=== PATIENT | female | born 1990 | race Caucasian/White ===

== ENCOUNTER 2017-06-07 17:49 | Inpatient (IN) ==
[2017-06-07] MEDS ORDERED: metroNIDAZOLE INJ 500 MG in PREMIX 1 EACH IV STA (19:52)
[2017-06-07] MEDS ORDERED: CEFUROXIME 250 MG TABLET PO STA (19:53)
--- NOTE | 2017-06-07 19:56 | Emergency Department Note ---
Arrival - Arrival Chief Complaint: Abdominal / Flank Pain Stated Complaint: lower lt stomach stabbing pain,nausea,wont eat ED Nursing Triage Note: c/o left lower quadrant abdominal pain onset approx one week ago. Describes as squeezing pain. Pain worse upon ambulation. +nausea. + decreased appetite. +diarrhea-chronic. Mode of Arrival: Ambulatory Time Seen by Provider: 06/07/17 19:37 - History of Present Illness HPI Narrative: This is a 26-year-old white female with chronic abdominal pain who has had a hysterectomy cholecystectomy and appendectomy there is been admitted to the emergency department several times this year with left lower quadrant abdominal pain thought to be due to diverticulitis is been treated with amoxicillin and Flagyl presents with recurrence of left lower quadrant pain which the patient says that she has somehow been able to obtain amoxicillin and Flagyl for and which is not working. During her last admission 3 months ago she had a sigmoidoscopy with biopsy of the sigmoid colon which did not show evidence of inflammatory bowel disease a diagnosis which the patient claims she has been diagnosed with in the past but for which there is no documentation. Patient is unwilling to accept oral antibiotics but is requesting IV antibiotics for her chronic presumed diverticulitis with left lower quadrant abdominal pain peer Date of Last Menstrual Period: hyst Allergies/Adverse Reactions: Allergies Allergy/AdvReac Type Severity Reaction Status Date / Time levofloxacin [From Levaquin] Allergy HIVES Verified 06/07/17 18:17 Home Medications: Home Medications Medication Instructions Recorded Confirmed Type Amoxicillin/Clav Tab [Augmentin 500 mg PO BID 04/27/17 04/27/17 History Tab] Estradiol [Estradiol 0.1 mg/24 hr 1 patch TOP Q3D 04/27/17 04/27/17 History (2x week) Patch] metroNIDAZOLE [Metronidazole] 500 mg PO BID 04/27/17 04/27/17 History Dicyclomine Cap/Tab [Bentyl 20 mg PO QID PRN #60 tablet 04/28/17 Rx Cap/Tab] Hydrocodone/Acetaminophen [[place] 1 each PO RT Q8H PRN #12 tablet 04/28/17 Rx 10-325 Tablet] Polyethylene Glycol Powder 17 gm PO DAILY #14 pack 04/28/17 Rx [Miralax] Cefuroxime Tab [Ceftin] 500 mg PO Q12HR #14 tablet 06/07/17 Rx metroNIDAZOLE TAB [Flagyl Cap/Tab] 500 mg PO TID #21 tablet 06/07/17 Rx oxyCODONE/ACETAMINOPHEN 5-325 1 tablet PO Q6H #10 tablet 06/07/17 Rx [Percocet 5-325] Review of System - Review of System Constitutional: Absent: fever, night sweats Eyes: Absent: redness Head/Ears/Nose/Throat: Absent: epistaxis, nasal drainage Respiratory: Absent: respiratory distress Cardiovascular: Absent: dyspnea on exertion, orthopnea Gastrointestinal: Present: abdominal pain. 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) No history of: Seizures Rheumatology: History of;: Fibromyalgia, Rheumatoid Arthritis Gastrointestinal: History of: Diverticulitis/ Diverticulosis, GERD, Ulcerative Colitis Musculoskeletal: History of: Musculoskeletal Problems (ARTHRITIS, degenerative spinal disease) Other: History of: Miscellaneous Medical Problems (chronic Lyme disease followed by infectious disease with high-dose antibiot) - Surgical History Cardiac Surgeries: Sugical HX of: Vascular Access Devices (ports and PICC lines in treatment of Lymes disease) Thoracic Surgeries: Patient denies;: Lobectomy Neurologic Surgeries: Patient denies: Neurologic Surgery HEENT Surgeries: Surgical HX of: Tonsilectomy & Adenoidectomy Abdominal Surgeries: Surgical HX of: Abdominal Surgery (cholecystectomy), Appendectomy, Cholecystectomy, Colonoscopy ([place] biopsy mild inflammatory changes), EGD Reproductive Surgeries: Surgical HX of;: Gynecologic Surgery, Hysterectomy Orthopedic Surgeries: Surgical HX of;: Implanted Devices (mediport left chest) - Family History Family History: Reports;: Family Cancer (dad prostate, grandmother ovarian), Family Diabetes (dad), Family Heart Disease (dad), Family Stroke (dad) Denies;: Family Anesthesia Reaction, Family Hypertension, Family Psychiatric Problems - Social History Smoking Status: Never smoker Frequency of Alcohol Use: None Type of Drug Use: None Exam Vital Signs: Vital Signs Temperature 98.2 F 06/07/17 19:04 Pulse Rate 65 06/07/17 19:04 Respiratory Rate 18 06/07/17 19:04 Blood Pressure 121/77 06/07/17 19:04 O2 Sat by Pulse Oximetry 100 06/07/17 18:09 - General General appearance: alert - Eye Eye exam: Present: PERRL, EOMI - ENT ENT exam: Present: normal exam, normal oropharynx - Neck Neck exam: Present: normal inspection - Chest Chest inspection: Present: normal inspection - Respiratory Respiratory exam: Present: normal lung sounds bilaterally - Cardiovascular Cardiovascular exam: Present: regular rate, normal rhythm - Abdominal Exam Abdominal exam: Present: soft, normal bowel sounds - Extremities Exam Extremities exam: Present: normal inspection, full ROM - Back Exam Back exam: Present: normal inspection, full ROM - Neurological Exam Neurological exam: Present: alert, oriented X3, CN II-XII intact - Psychiatric Psychiatric exam: Present: normal affect, normal mood - Skin Skin exam: Present: warm, dry Course Course Narrative: The case was discussed with the hospitalist who agreed to admit the patient for further evaluation and treatment of her unexplained abdominal pain. Results - Labs CBC & BMP: 06/07/17 20:31 06/07/17 20:31 Disposition Clinical Impression: Abdominal pain, chronic, left lower quadrant Disposition: Still a Patient Instructions: Cefuroxime (By mouth), Metronidazole (By mouth) Additional Instructions: The case was discussed with the hospitalist who is aware of the patient's unexplained altered mental status and has agreed to admit the patient to the hospital for further evaluation and treatment. Prescriptions: Cefuroxime Tab [Ceftin] 500 mg PO Q12HR #14 tablet metroNIDAZOLE TAB [Flagyl Cap/Tab] 500 mg PO TID #21 tablet oxyCODONE/ACETAMINOPHEN 5-325 [Percocet 5-325] 1 tablet PO Q6H #10 tablet New Prescriptions: Rx's Medication Instructions Recorded Cefuroxime Tab [Ceftin] 500 mg PO Q12HR #14 tablet 06/07/17 metroNIDAZOLE TAB [Flagyl Cap/Tab] 500 mg PO TID #21 tablet 06/07/17 oxyCODONE/ACETAMINOPHEN 5-325 1 tablet PO Q6H #10 tablet 06/07/17 [Percocet 5-325]
[2017-06-07] MEDS ORDERED: CEFUROXIME 250 MG TABLET ONE ×2 (20:22→20:43)
[2017-06-07] MEDS ORDERED: metroNIDAZOLE 500 MG/100 ML PREMIX IV ONE (20:22)
[2017-06-07] MEDS ORDERED: ONDANSETRON ODT 4 MG TABLET PO STA (20:48)
[2017-06-07] MEDS ORDERED: ONDANSETRON ODT 4 MG TABLET PO ONE (20:49)
[2017-06-07 20:51] LABS: Basophils # 0.1 10*3/uL (0.0-0.2); Basophils % 0.6 % (0.0-0.8); Eosinophils # 0.1 10*3/uL (0.0-0.87); Eosinophils % 1.8 % (0.00-10.9); Hemoglobin 12.7 GM/DL (12.0-16.0); Immature Granulocytes % 0.3 %; Immature Granulocytes Absolute 0.02 #; Lymphocytes # 3.3 10*3/uL (1.4-4.0); Lymphocytes % 42.9 % (21.3-54.2); Mean Corpuscular HGB Conc 34.3 GM/DL (32-36); Mean Corpuscular Hemoglobin 28 PG (27-34); Mean Platelet Volume 9.3 FL (9.6-12.0); Monocytes # 0.5 10*3/uL (0.11-0.8); Monocytes % 6.6 % (1.7-12.7); Neutrophils # 3.7 10*3/uL (1.4-7.4); Neutrophils % 47.8 % (38.7-73.9); Platelet Count 256 T/CUMM (130-400); Red Blood Count 4.51 MC/CUMM (3.8-5.5); Red Cell Distribution Width 13.7 % (9.3-17.3); White Blood Count 7.7 T/CUMM (4-12)
[2017-06-07] MEDS ORDERED: MORPHINE 2 MG/1 ML SYRINGE IV STA (20:57)
[2017-06-07] MEDS ORDERED: MORPHINE 2 MG/1 ML SYRINGE ONE (21:02)
[2017-06-07] MEDS ORDERED: HYDROmorphone 2 MG/1 ML VIAL IV STA (22:22)
[2017-06-07] MEDS ORDERED: ONDANSETRON 4 MG/2 ML VIAL IV STA (22:23)
[2017-06-07] MEDS ORDERED: ONDANSETRON 4 MG/2 ML VIAL ONE (22:46)
[2017-06-07] MEDS ORDERED: HYDROmorphone 2 MG/1 ML VIAL ONE (22:46)
[2017-06-07 22:50] LABS: Albumin 3.7 G/DL (3.4-5.0); Bilirubin,Total 0.4 MG/DL (0.2-1.0); Calcium 8.6 MG/DL (8.5-10.1); Osmolality,Calculated 278.3 MOS/KG (273-304); Potassium 3.6 MMOL/L (3.5-5.1); Total Protein 7.2 G/DL (6.4-8.3)
[2017-06-07] MEDS ORDERED: diphenhydrAMINE 50 MG/1 ML VIAL IV STA (23:12)
--- NOTE | 2017-06-08 01:22 | Hospitalist History & Physical ---
Assessment and Plan (1) Constipation Status: Acute Assessment and plan: This is an acute on chronic process. Today the patient presents with severe constipation throughout the colon is noted on her CT scan. She is admitted for fleets enemas and bowel regimen with GI consultation. CBC and chemistries were normal. I am not starting her on antibiotics as she does not have any evidence of acute diverticulitis at this time. Current Visit: Yes Qualifiers: Constipation type: chronic idiopathic constipation Qualified Code(s): K59.04 - Chronic idiopathic constipation (2) Nausea and vomiting Status: Acute Current Visit: Yes Qualifiers: Vomiting type: vomiting of fecal matter Qualified Code(s): R11.13 - Vomiting of fecal matter (3) Abdominal pain Status: Chronic Current Visit: Yes Qualifiers: Abdominal location: left lower quadrant Qualified Code(s): R10.32 - Left lower quadrant pain History of Present Illness Chief complaint: abdominal pain History of present illness: Ms. Esquivel is a 26 year old female with complaints of severe abdominal pain. She has chronic constipation. She has been worked up by Dr. Rowe and had multiple scopes in the past with Biaopsy. She does not have a hx of Inflammatory bowel disease. She has had diverticulitis in the past. Today, she complains of LLQ abdominal pain and nausea with vomiting. She had a CT abd/ pelvis done that shows extensive fecal material throughout the colon. She reports some encopresis and significant pain throughout. She also reports vomiting feculent material today. She reports feeling bloated and having decreased appetite. She is supposed to be on MiraLAX daily for prevention of chronic constipation. Home medications were reviewed and reconciled. She is a full code. Her mother was at the bedside. The patient was set up for discharge home from the emergency department however due to her significant pain complaints I was called to admit the patient for further evaluation and gastroenterology consultation. Home Medications Medication Instructions Recorded Confirmed Type Amoxicillin/Clav Tab [Augmentin 500 mg PO BID 04/27/17 04/27/17 History Tab] Estradiol [Estradiol 0.1 mg/24 hr 1 patch TOP Q3D 04/27/17 04/27/17 History (2x week) Patch] metroNIDAZOLE [Metronidazole] 500 mg PO BID 04/27/17 04/27/17 History Dicyclomine Cap/Tab [Bentyl 20 mg PO QID PRN #60 tablet 04/28/17 Rx Cap/Tab] Hydrocodone/Acetaminophen [[place] 1 each PO RT Q8H PRN #12 tablet 04/28/17 Rx 10-325 Tablet] Polyethylene Glycol Powder 17 gm PO DAILY #14 pack 04/28/17 Rx [Miralax] Cefuroxime Tab [Ceftin] 500 mg PO Q12HR #14 tablet 06/07/17 Rx metroNIDAZOLE TAB [Flagyl Cap/Tab] 500 mg PO TID #21 tablet 06/07/17 Rx oxyCODONE/ACETAMINOPHEN 5-325 1 tablet PO Q6H #10 tablet 06/07/17 Rx [Percocet 5-325] Allergies Allergy/AdvReac Type Severity Reaction Status Date / Time levofloxacin [From Levaquin] Allergy HIVES Verified 06/07/17 18:17 Medical,Surgical,& Family Hx - Medical History Neurology: History of: Vertigo, 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) No history of: Seizures Rheumatology: History of;: Fibromyalgia, Rheumatoid Arthritis Gastrointestinal: History of: Diverticulitis/ Diverticulosis, GERD Musculoskeletal: History of: Musculoskeletal Problems (ARTHRITIS, degenerative spinal disease) Other: History of: Miscellaneous Medical Problems (chronic Lyme disease followed by infectious disease with high-dose antibiot) - Surgical History Cardiac Surgeries: Sugical HX of: Vascular Access Devices (ports and PICC lines in treatment of Lymes disease) Thoracic Surgeries: Patient denies;: Lobectomy Neurologic Surgeries: Patient denies: Neurologic Surgery HEENT Surgeries: Surgical HX of: Tonsilectomy & Adenoidectomy Abdominal Surgeries: Surgical HX of: Abdominal Surgery (cholecystectomy), Appendectomy, Cholecystectomy, Colonoscopy ([place] biopsy mild inflammatory changes), EGD Reproductive Surgeries: Surgical HX of;: Gynecologic Surgery, Hysterectomy Orthopedic Surgeries: Surgical HX of;: Implanted Devices (mediport left chest) - Family History Family History: Reports;: Family Cancer (dad prostate, grandmother ovarian), Family Diabetes (dad), Family Heart Disease (dad), Family Stroke (dad) Denies;: Family Anesthesia Reaction, Family Hypertension, Family Psychiatric Problems - Social History Smoking Status: Never smoker Have you smoked in the last 12 months: No Frequency of Alcohol Use: None Type of Drug Use: None Marital Status: Single Lives With:: Alone Functional capacity: independent ambulation 12 point system: reviewed and no additional remarkable complaints except as stated - Constitutional Constitutional: Present: anorexia - Gastrointestinal Gastrointestinal: Present: abdominal pain, bloating, constipation, dyspepsia, nausea, vomiting Exam - Constitutional Vitals: Period Temp Pulse Resp BP Sys/Banks Pulse Ox Last 24 Hr 98.2 F-98.2 F 65-74 16-18 121-122/77-83 100 Exam: Constitutional System: Mild distress. No tremulousness. Head: Normocephalic, atraumatic. Ears, Nose and Throat System: No pain or tenderness. No epistaxis or discharge Eyes System: Pupils equal, round, and reactive. Extraocular muscles intact. Neck: Supple, without adenopathy, No jugular venous distention. No thyromegaly, neck mass, or prior surgery apparent. Respiratory System: Chest clear to auscultation. Cardiovascular System: Heart with regular rate and rhythm. No murmur. GI System: Abdomen firm with mild tenderness to palpation throughout. Normo active bowel sounds present. Musculoskeletal System: limbs with no pedal edema. Full distal pulses. Normal capillary refill. Neurological System: No discernable sensory deficit. No aphasia Psychiatric System: Conversation is rational Results - Labs CBC & BMP: 06/07/17 20:31 06/07/17 20:31 Lab Results: I have reviewed the past 24 hour labs - Diagnostic Findings Procedure: CT Abdomen and Pelvis: image reviewed by me
[2017-06-08] MEDS ORDERED: SODIUM PHOSPHATE ENEMA 133 ML BOTTLE RECTAL ONE (02:00)
[2017-06-08] MEDS: PROMETHAZINE 25 MG/1 ML VIAL IM PRN ×2 (03:25→19:47)
[2017-06-08] MEDS: SODIUM CHLORIDE 0.9% 1,000 ML IV SCH ×3 (03:31→19:38)
[2017-06-08] MEDS: DICYCLOMINE 20 MG TABLET PO PRN ×2 (03:47→09:10)
[2017-06-08] MEDS: DOCUSATE SODIUM 100 MG CAPSULE PO SCH ×3 (03:47→20:24)
[2017-06-08] MEDS: LACTULOSE 20 GM/30 ML UDCUP PO SCH ×6 (03:49→23:28)
[2017-06-08] MEDS: MORPHINE 2 MG/1 ML SYRINGE IV PRN ×4 (03:57→23:04)
[2017-06-08] MEDS ORDERED: SODIUM PHOSPHATE ENEMA 133 ML BOTTLE RECTAL PRN (08:00)
--- NOTE | 2017-06-08 08:10 | CT Report ---
CT abdomen pelvis Indication: Abdominal and pelvic pain Comparison: 27 April 2017 Technique: Axial CT imaging of the abdomen and pelvis is performed with intravenous and oral contrast. Contrast dose is 100 cc of Omnipaque 350. Findings: Cardiac and lung bases are within normal limits CT abdomen: The liver spleen pancreas and adrenal glands are normal in size and enhancement. No evidence of focal lesion is demonstrated in these solid organs. Gallbladder is been removed. Nonenhancing cyst is seen in the right kidney similar to previous exam. Otherwise the kidneys are normal in size and enhancement. No evidence of hydronephrosis or nephrolithiasis is seen. The bowel caliber is normal and no wall thickening or adjacent inflammatory change is seen. No evidence of free fluid or free air is present. CT pelvis: The pelvic bowel appears within normal limits. Bladder shows no evidence of abnormality. The pelvic organs show no evidence of abnormality Impression: No evidence of abnormality demonstrated This CT exam was performed using one or more the following dose reduction techniques: Automated exposure control, adjustment of the MA and/or KV according to patient size, or use of iterative reconstruction technique. PROCEDURE INTERPRETED AT [facility] DEPARTMENT OF RADIOLOGY Final Report Signed by: Dr. Kulwant García
--- NOTE | 2017-06-08 09:01 | Gastrointestinal Consult Note ---
<Cari Beckman - Last Filed: 06/08/17 08:54> Assessment and Plan (1) Abdominal pain Status: Chronic Assessment and plan: 06/08-5 day history of abdominal pain, left lower quadrant, without fever or chills. Episodes of nausea vomiting. History of diverticulitis without reported IBD. CT of abdomen noted as below. Prior endoscopy was noted as below. IV Flagyl initiated. No leukocytosis and afebrile. Further plan an addendum to followed by Dr. Rowe Current Visit: Yes Qualifiers: Abdominal location: left lower quadrant Qualified Code(s): R10.32 - Left lower quadrant pain History of Present Illness Chief complaint: Abd pain History of present illness: Ms. Esquivel is a 26 year old female who was admitted to the hospital with onset of abdominal pain. Pt has a prior history of abdominal pain with reoccurring episodes and flares. She states that she has had pain in her LLQ for years that requires antibiotic therapy off and on for this. Pt states that this flare began on Sunday with a sudden onset of sharp, stabbing pain in the LLQ. It was initially associated with nausea and vomiting (reporting an episode of fecal containing material) however denies any coffee-ground emesis or hematemesis. Patient states that she has chronic diarrhea with 4-5 loose stools daily. She states that she has had this off and on for several years as well with occasional varying episodes of constipation. She denies any fever or chills associated with this. She denies any nocturnal defecation or incontinence. She states that she has noticed traces of blood when wiping as well. She denies any melena. Patient states that she has lost 10 pounds over the last month due to her continued episodes of diarrhea as well. She states that at times when she has a flare she will see her PCP and they will give her antibiotics which will help with the pain for a period of time. Patient was last hospitalized in 2015 in March as well as July for abdominal pain. She did have an IBD serology workup done in March 2016 however unable to review these results at this time. 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 Her biopsies were noted to show self-limiting colitis at that time. On admission, patient had a CT of the abdomen with oral and IV contrast with no evidence of abnormality was seen. She has had IV Flagyl initiated. She is afebrile without leukocytosis. She reported on admission having constipation however she tells me that she does not feel this is necessarily the case at this time. Home Medications Medication Instructions Recorded Confirmed Type Amoxicillin/Clav Tab [Augmentin 500 mg PO BID 04/27/17 04/27/17 History Tab] Estradiol [Estradiol 0.1 mg/24 hr 1 patch TOP Q3D 04/27/17 04/27/17 History (2x week) Patch] metroNIDAZOLE [Metronidazole] 500 mg PO BID 04/27/17 04/27/17 History Dicyclomine Cap/Tab [B[place] 20 mg PO QID PRN #60 tablet 04/28/17 Rx Cap/Tab] Hydrocodone/Acetaminophen [[employer] 1 each PO RT Q8H PRN #12 tablet 04/28/17 Rx 10-325 Tablet] Polyethylene Glycol Powder 17 gm PO DAILY #14 pack 04/28/17 Rx [Miralax] Cefuroxime Tab [Ceftin] 500 mg PO Q12HR #14 tablet 06/07/17 Rx metroNIDAZOLE TAB [Flagyl Cap/Tab] 500 mg PO TID #21 tablet 06/07/17 Rx oxyCODONE/ACETAMINOPHEN 5-325 1 tablet PO Q6H #10 tablet 06/07/17 Rx [Percocet 5-325] Allergies Allergy/AdvReac Type Severity Reaction Status Date / Time levofloxacin [From Levaquin] Allergy HIVES Verified 06/07/17 18:17 Medical,Surgical,& Family Hx - Medical History Neurology: History of: Vertigo, 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) No history of: Seizures Rheumatology: History of;: Fibromyalgia, Rheumatoid Arthritis Gastrointestinal: History of: Diverticulitis/ Diverticulosis, GERD, Ulcerative Colitis Musculoskeletal: History of: Musculoskeletal Problems (ARTHRITIS, degenerative spinal disease) Other: History of: Miscellaneous Medical Problems (chronic Lyme disease followed by infectious disease with high-dose antibiot) - Surgical History Cardiac Surgeries: Sugical HX of: Vascular Access Devices (ports and PICC lines in treatment of Lymes disease) Thoracic Surgeries: Patient denies;: Lobectomy Neurologic Surgeries: Patient denies: Neurologic Surgery HEENT Surgeries: Surgical HX of: Tonsilectomy & Adenoidectomy Abdominal Surgeries: Surgical HX of: Abdominal Surgery (cholecystectomy), Appendectomy, Cholecystectomy, Colonoscopy ([place] biopsy mild inflammatory changes), EGD Reproductive Surgeries: Surgical HX of;: Gynecologic Surgery, Hysterectomy Orthopedic Surgeries: Surgical HX of;: Implanted Devices (mediport left chest) - Family History Family History: Reports;: Family Cancer (dad prostate, grandmother ovarian), Family Diabetes (dad), Family Heart Disease (dad), Family Stroke (dad) Denies;: Family Anesthesia Reaction, Family Hypertension, Family Psychiatric Problems - Social History Smoking Status: Never smoker Frequency of Alcohol Use: None Type of Drug Use: None 12 point system: reviewed and no additional remarkable complaints except as stated - Constitutional Constitutional: Present: as per HPI - EENT Eyes: Present: as per HPI Ears: Present: as per HPI Nose, mouth and throat: Present: as per HPI - Cardiovascular Cardiovascular: Present: as per HPI - Respiratory Respiratory: Present: as per HPI - Gastrointestinal Gastrointestinal: Present: as per HPI, abdominal pain, hematochezia, nausea, vomiting - Genitourinary Genitourinary: Present: as per HPI - Musculoskeletal Musculoskeletal: Present: as per HPI - Neurological Neurological: Present: as per HPI - Psychiatric Psychiatric: Present: as per HPI - Endocrine Endocrine: Present: as per HPI - Hematologic/Lymphatic Hematologic/Lymphatic: Present: as per HPI Exam - Constitutional Vitals: Period Temp Pulse Resp BP Sys/Banks Pulse Ox Last 24 Hr 97.5 F-98.2 F 65-74 16-20 109-122/64-83 98-100 General appearance: normal weight, no acute distress - Head Head exam: Present: normal inspection, normocephalic - Eye Eye exam: Present: other (lids and conjunctiva unremarkable). Absent: scleral icterus - ENT ENT exam: Present: normal exam, normal oropharynx - Neck Neck exam: Present: normal inspection - Respiratory Respiratory exam: Present: clear to auscultation bilaterally. Absent: rales, rhonchi, wheezes - Cardiovascular Cardiovascular exam: Present: regular rate and rhythm. Absent: JVD, systolic murmur - GI/Abdominal GI/Abdominal exam: Present: normal bowel sounds, soft. Absent: ascites, distended, mass, organomegaly, tenderness - Extremities Exam Extremities exam: Present: normal inspection, full ROM - Back Exam Back exam: Present: normal inspection - Neurological Exam Neurological exam: Present: alert, oriented X3 - Psychiatric Psychiatric exam: Present: normal affect, normal mood - Skin Skin exam: Present: normal color, warm, dry Results - Labs CBC & BMP: 06/07/17 20:31 06/07/17 20:31 Lab Results: I have reviewed the past 24 hour labs Specialty Discharge - Follow Up or Referrals <Bruce Rowe - Last Filed: 06/08/17 13:11> History of Present Illness Chief complaint: 3030 History of present illness: Ms. Esquivel is a 26 year old female Exam - Constitutional Vitals: Period Temp Pulse Resp BP Sys/Banks Pulse Ox Last 24 Hr 97.5 F-98.4 F 56-74 16-20 99-122/55-83 90-100 Results - Labs CBC & BMP: 06/07/17 20:31 06/07/17 20:31
[2017-06-08] MEDS: BISACODYL 5 MG TABLET PO SCH (09:10)
[2017-06-08] MEDS: ESTRADIOL 0.1 MG PATCH (1X WK) TRANSDERM SCH (09:10)
[2017-06-08] MEDS: PANTOPRAZOLE 40 MG TABLET PO SCH (09:11)
[2017-06-08] MEDS: ONDANSETRON 4 MG/2 ML VIAL IV PRN ×3 (09:13→23:28)
[2017-06-08] MEDS: POLYETHYLENE GLYCOL POWDER 17 GM PACK PO SCH (09:15)
--- NOTE | 2017-06-08 17:28 | Event Note ---
Ms Esquivel was admitted at 1 a.m. today, and CT shows a large amount of what appears to be stool/constipation, Dr aviles ordered enema for evacuation of stool. Seen patient this morning, patient was upset because she feels like "no one is listening to me". She verbalized that Dr Aviles was very pleasant and seemed genuinely concerned and attentive. She verbalized that she has been dealing with the abdominal pain for almost a year now and nothing is getting better. She has "2 different doctors telling me 2 totally different things" related to what they see on the CT. She did report the enema given; only produced a couple of "pellets" and she still feels very bloated and uncomfortable. I tried to comfort her and her mother was at bedside and offering comfort too. We will continue current treatment and hopefully have results or relief of the abdominal pain and constipation. Dr Rowe has seen patient and feels a scope would not be safe at this time due to the possibility of diverticulitis. Dr Willson will be making rounds in the a.m. and will follow his recommendations and greatly appreciate his assistance with care.
[2017-06-08 18:19] LABS: Apearance,Urine Slightly Hazy (Clear); Bilirubin,Urine Negative (Negative); Blood, Urine Negative (Negative); Glucose,Urine (UA) Negative (Negative); Ketones,Urine 20 mg/dL (Negative); Mucus,Urine Occasional /LPF (Occasional); Nitrite,Urine Negative (Negative); Protein,Urine Negative; RBC,Urine <1 /HPF (0-4); Squamous Epithelial Cell,Urine Occasional /HPF (0-10); Urine Color Yellow (Yellow); Urine Specific Gravity 1.027 (1.001-1.035); Urine Urobilinogen < 2.0 EU/DL (0.2-1.0); WBC,Urine 1 /HPF (0-6)
[2017-06-09] MEDS: SODIUM CHLORIDE 0.9% 1,000 ML IV SCH ×3 (04:17→20:50)
[2017-06-09] MEDS: LACTULOSE 20 GM/30 ML UDCUP PO SCH ×5 (04:17→20:26)
[2017-06-09] MEDS: ONDANSETRON 4 MG/2 ML VIAL IV PRN ×5 (04:17→20:26)
[2017-06-09] MEDS: MORPHINE 2 MG/1 ML SYRINGE IV PRN ×5 (04:17→20:26)
[2017-06-09] MEDS: BISACODYL 5 MG TABLET PO SCH (09:07)
[2017-06-09] MEDS: DOCUSATE SODIUM 100 MG CAPSULE PO SCH ×2 (09:07→20:26)
[2017-06-09] MEDS: PANTOPRAZOLE 40 MG TABLET PO SCH (09:07)
[2017-06-09] MEDS: POLYETHYLENE GLYCOL POWDER 17 GM PACK PO SCH (09:07)
--- NOTE | 2017-06-09 14:21 | Hospitalist Progress Note ---
<Sari Shannon - Last Filed: 06/09/17 14:14> Assessment and Plan - Time spent with patient Time spent with patient: Less than 30 minutes (1) Abdominal pain Status: Chronic Assessment and plan: 26-year-old white female with history of chronic Lyme disease and diverticulitis admitted by the hospitalist service on 06/08/2017 with abdominal pain, nausea, and vomiting due to chronic constipation. Patient is now distended with hypoactive bowel sounds and she has vomited bile multiple times this morning. Will place NG tube to low wall suction, make her n.p.o. except ice chips, Chloraseptic [place] for sore throat. She is having bowel movements but they are all watery. Looking at CT scan she does have some severe constipation with impaction in the rectal vault. We will have nurses do digital exam and remove impaction if possible. They will try soapsuds enema and mineral oil as needed. Patient is having some rectal bleeding on her tissue so we will have nurses try not to be too aggressive. Patient will require discharge on aggressive bowel regimen and will most likely need to keep on this long-term. Dr. Porter will see and examine patient and further recommendations to follow. Current Visit: Yes Qualifiers: Abdominal location: left lower quadrant Qualified Code(s): R10.32 - Left lower quadrant pain (2) Rectal bleeding Status: Acute Current Visit: No (3) Constipation Status: Acute Current Visit: Yes Qualifiers: Constipation type: chronic idiopathic constipation Qualified Code(s): K59.04 - Chronic idiopathic constipation (4) Nausea and vomiting Status: Acute Current Visit: Yes Qualifiers: Vomiting type: vomiting of fecal matter Qualified Code(s): R11.13 - Vomiting of fecal matter Hospitalist: Subjective Interval history: Patient continues to have abdominal pain. She states she vomited 4 times this morning and it was green in smell diet. This was corroborated by RN. Patient states she is having watery diarrhea. Exam - Constitutional Vitals: Period Temp Pulse Resp BP Sys/Banks Pulse Ox Last 24 Hr 97 F-207.5 F 57-75 18-20 95-112/55-63 94-99 Exam: 26-year-old white female, mild distress, alert and oriented Chest clear CV regular rate and rhythm Abdomen mildly distended, hypoactive bowel sounds Extremities no edema Results - Labs CBC & BMP: 06/07/17 20:31 06/07/17 20:31 Specialty Discharge - Follow Up or Referrals <Luh Porter - Last Filed: 06/09/17 17:26> Hospitalist: Subjective Interval history: Patient seen. She is still having GI symptoms.We will get blood cultures and stool studies Exam - Constitutional Vitals: Period Temp Pulse Resp BP Sys/Banks Pulse Ox Last 24 Hr 97 F-207.5 F 57-69 18-20 95-112/55-63 95-99 Results - Labs CBC & BMP: 06/07/17 20:31 06/07/17 20:31
[2017-06-09] MEDS ORDERED: PHENOL 1.4% THROAT SPRAY 177 ML BOTTLE PO PRN (14:31)
[2017-06-09] MEDS ORDERED: MINERAL OIL ENEMA 133 ML BOTTLE RECTAL PRN (14:31)
[2017-06-09] MEDS ORDERED: LORazepam 2 MG/1 ML VIAL IV ONE (15:09)
--- NOTE | 2017-06-09 17:37 | Gastrointestinal Progress Note ---
Assessment and Plan - Time spent with patient Time spent with patient: Greater than 30 minutes (1) Abdominal pain Status: Chronic Current Visit: Yes Qualifiers: Abdominal location: left lower quadrant Qualified Code(s): R10.32 - Left lower quadrant pain (2) Other specified counseling Status: Acute Current Visit: Yes Exam (Progress Note) - Constitutional Vitals: Period Temp Pulse Resp BP Sys/Banks Pulse Ox Last 24 Hr 97 F-207.5 F 57-75 16-20 95-112/55-67 95-99 Results - Labs CBC & BMP: 06/07/17 20:31 06/07/17 20:31 Specialty Discharge - Follow Up or Referrals Note Addendum: PLEASE NOTE -- automatic citation of patient information is unavoidable in this electronic note. I have made a reasonable effort to review the information cited , but it is not a part of my evaluation, impression, or recommendation unless specifically discussed in the dictated text that follows. As well, voice recognition software was used in the creation of this clinical note. Reasonable effort was made to identify and correct gross errors. Despite proofreading, errors in last picker may be present, including nonsense verbiage at times. If you encounter such an error, please contact me at for discussion and correction. -- Anamika Chief complaint: abdominal pain Subjective: the patient is a 26-year-old female seen for follow-up of abdominal pain. I received a call from the nursing staff saying the patient has new radiologic findings that are suggestive of increased stool burden. Record review reveals the CT findings from a couple of days ago with a moderate stool burden. The patient is accompanied by her mother who participates in our interview and is quite frustrated. On interview, the patient reports her abdominal pain is primarily left lower quadrant and persistent over the past two years. The pain waxes and wanes in an unpredictable fashion. She notes that lying on her left side can be helpful as can sitting up in a seated position. She notes that eating has an unreliable effect and that she does have seeming intolerance of fatty foods, particularly [place] food, but that this tends to clear out her bowels and provide relief from the underlying abdominal discomfort. She reports a history of endometriosis with hysterectomy several years ago. She has been following with a pasteuriser operator and understands that the pasteuriser operator does not believe that her pain is related to recurrent or persistent endometriosos. She has decreased appetite at present and currently has a nasogastric tube in place that has been used for decompression. She does not, however, have obstructive or ileus pathophysiology evident. Medications: Dulcolax, the cycle mean, Colace, estradiol, lactulose, mineral oil , morphine, Zofran, Protonix, MiraLAX, Phenergen, fleets enema, sodium chloride infusion Review of Symptoms: 12 point review of symptoms was negative except as noted above Physical examination: Vital Signs: Current vital signs reviewed. General Appearance: lying in bed. Comfortable. Conversant. Nasogastric tube in place. Head: Normocephalic. Eyes: no scleral icterus. No scleral injection. No conjunctival pallor. Oral Cavity: Odor of breath was normal. No drooling was observed. Lips showed no abnormalities. Lungs: Respiration rhythm and depth was normal. Cardiovascular: Heart rate and rhythm were normal. Abdomen: abdomen was not distended. Abdominal auscultation revealed no abnormalities. Ascites was not discovered. Abdominal palpation revealed no tenderness and no hepatosplenomegaly. Musculoskeletal System: musculoskeletal system was grossly normal. Neurological: level of consciousness was normal. Speech was normal. No coordination/cerebellum abnormalities were noted. Skin: Gen. appearance was normal. Color and pigmentation were normal. No skin lesions were appreciated. Laboratory: reviewed Radiology: CT of the abdomen and pelvis, 06/07/17 -- moderate stool burden; otherwise, no evidence of abnormality Impressions: #1. Abdominal pain -- the differential diagnosis includes irritable bowel syndrome, constipation predominant, postsurgical adhesive pain, recurrent or persistent endometriosis, and other non-gastrointestinal diagnoses. After an extensive discussion of the possibilities, we have decided to proceed with a full bowel prep in order to completely empty her: if possible. If this provides some relief, constipation pathophysiology may be a contributing factor. If not, we may need to pursue non-gastrointestinal ideologies more aggressively. Particularly, reconsideration of endometriosos would be important. We will follow-up with further recommendations pending the outcome of bowel cleansing. #2. Other specified counseling -- Patient seen for greater than 30 minutes. Greater than 50% of this time was spent counseling regarding differential diagnosis, likely diagnosis,, diagnostic and therapeutic options, risks, benefits, and alternatives to procedures and medications, informed consent, and plan of care generally. Patient has expressed understanding and wishes to proceed. Recommendations: -- 1 gallon of Zach over four hours through the NG tube -- the patient should remain at an incline during infusion -- if no benefit, consider inpatient gynecology consultation -- we will continue to follow with you
[2017-06-09] MEDS ORDERED: POLYETHYLENE GLYCOL 3350/ELECTROLYTES 4,000 ML BOTTLE PO ONE (19:00)
[2017-06-09] MEDS: DICYCLOMINE 20 MG TABLET PO PRN (20:26)
[2017-06-10] MEDS: MORPHINE 2 MG/1 ML SYRINGE IV PRN ×5 (01:26→21:51)
[2017-06-10] MEDS: LACTULOSE 20 GM/30 ML UDCUP PO SCH ×6 (01:26→20:13)
[2017-06-10] MEDS: SODIUM CHLORIDE 0.9% 1,000 ML IV SCH ×3 (04:44→21:51)
[2017-06-10] MEDS: ONDANSETRON 4 MG/2 ML VIAL IV PRN ×2 (07:49→13:45)
[2017-06-10] MEDS: PANTOPRAZOLE 40 MG TABLET PO SCH (09:40)
[2017-06-10] MEDS: BISACODYL 5 MG TABLET PO SCH (09:40)
[2017-06-10] MEDS: DOCUSATE SODIUM 100 MG CAPSULE PO SCH ×2 (09:41→20:13)
[2017-06-10] MEDS: POLYETHYLENE GLYCOL POWDER 17 GM PACK PO SCH (09:43)
[2017-06-10] MEDS: PROMETHAZINE 25 MG/1 ML VIAL IM PRN (09:58)
--- NOTE | 2017-06-10 10:00 | Gastrointestinal Progress Note ---
Assessment and Plan - Time spent with patient Time spent with patient: Less than 30 minutes (1) Abdominal pain Status: Chronic Current Visit: Yes Qualifiers: Abdominal location: left lower quadrant Qualified Code(s): R10.32 - Left lower quadrant pain (2) Other specified counseling Status: Acute Current Visit: Yes Exam (Progress Note) - Constitutional Vitals: Period Temp Pulse Resp BP Sys/Banks Pulse Ox Last 24 Hr 97 F-98.4 F 65-85 16-18 111-115/63-70 97-100 Results - Labs CBC & BMP: 06/10/17 10:03 06/10/17 10:03 Specialty Discharge - Follow Up or Referrals Note Addendum: PLEASE NOTE -- automatic citation of patient information is unavoidable in this electronic note. I have made a reasonable effort to review the information cited , but it is not a part of my evaluation, impression, or recommendation unless specifically discussed in the dictated text that follows. As well, voice recognition software was used in the creation of this clinical note. Reasonable effort was made to identify and correct gross errors. Despite proofreading, errors in ash handler may be present, including nonsense verbiage at times. If you encounter such an error, please contact me at [phone] for discussion and correction. -- Anamika Chief complaint: abdominal pain Subjective: the patient is a 26-year-old female seen for follow-up of abdominal pain. The patient underwent a bowel purge last evening with [place]. She reports about four medium size solid stools with little or no liquid stool. She continues with abdominal cramping similar to yesterday. Medications: Dulcolax, the cycle mean, Colace, estradiol, lactulose, mineral oil , morphine, Zofran, Protonix, MiraLAX, Phenergen, fleets enema, sodium chloride infusion Review of Symptoms: 12 point review of symptoms was negative except as noted above Physical examination: Vital Signs: Current vital signs reviewed. General Appearance: lying in bed. Comfortable. Conversant. Nasogastric tube in place. Head: Normocephalic. Eyes: no scleral icterus. No scleral injection. No conjunctival pallor. Oral Cavity: Odor of breath was normal. No drooling was observed. Lips showed no abnormalities. Lungs: Respiration rhythm and depth was normal. Cardiovascular: Heart rate and rhythm were normal. Abdomen: abdomen was not distended. Abdominal auscultation revealed no abnormalities. Ascites was not discovered. Abdominal palpation revealed no tenderness and no hepatosplenomegaly. Musculoskeletal System: musculoskeletal system was grossly normal. Neurological: level of consciousness was normal. Speech was normal. No coordination/cerebellum abnormalities were noted. Skin: Gen. appearance was normal. Color and pigmentation were normal. No skin lesions were appreciated. Laboratory: reviewed Radiology: -- KUB, 06/10/2017: official read pending; small amount of retain stool per my review -- CT of the abdomen and pelvis, 06/07/17: moderate stool burden; otherwise, no evidence of abnormality Impressions: #1. Abdominal pain -- the differential remains as previously stated. The patient has tolerated a bowel prep and seems to have cleared most of her stool burden. Despite this, she continues with left-sided abdominal pain. I believe we need to pursue non-gastrointestinal ideologies more aggressively. Particularly, reconsideration of endometriosos would be important. #2. Other specified counseling -- Patient seen for less than 30 minutes. Greater than 50% of this time was spent counseling regarding differential diagnosis, likely diagnosis,, diagnostic and therapeutic options, risks, benefits, and alternatives to procedures and medications, informed consent, and plan of care generally. Patient has expressed understanding and wishes to proceed. Recommendations: -- discontinue nasogastric tube at your discretion -- consider inpatient gynecology consultation for evaluation against postsurgical adhesive/scar related pain and/or residual/persistent endometriosis -- we will continue to follow with you. Dr. Rowe will resume G.I. care for this patient tomorrow.
[2017-06-10 10:18] LABS: Basophils # 0.1 10*3/uL (0.0-0.2); Basophils % 0.7 % (0.0-0.8); Eosinophils # 0.3 10*3/uL (0.0-0.87); Eosinophils % 3.9 % (0.00-10.9); Hematocrit 36.9 VOL% (35.7-47.0); Hemoglobin 12.6 GM/DL (12.0-16.0); Immature Granulocytes % 0.2 %; Immature Granulocytes Absolute 0.02 #; Lymphocytes # 2.3 10*3/uL (1.4-4.0); Lymphocytes % 26.5 % (21.3-54.2); Mean Corpuscular HGB Conc 34.1 GM/DL (32-36); Mean Corpuscular Hemoglobin 28 PG (27-34); Mean Corpuscular Volume 83.3 FL (87-102); Mean Platelet Volume 9.4 FL (9.6-12.0); Monocytes # 0.5 10*3/uL (0.11-0.8); Monocytes % 6.1 % (1.7-12.7); Neutrophils # 5.4 10*3/uL (1.4-7.4); Neutrophils % 62.6 % (38.7-73.9); Platelet Count 234 T/CUMM (130-400); Red Blood Count 4.43 MC/CUMM (3.8-5.5); Red Cell Distribution Width 13.4 % (9.3-17.3); White Blood Count 8.6 T/CUMM (4-12)
[2017-06-10 10:43] LABS: Calcium 8.3 MG/DL (8.5-10.1); Osmolality,Calculated 276.3 MOS/KG (273-304); Potassium 3.4 MMOL/L (3.5-5.1)
--- NOTE | 2017-06-10 12:18 | XRay Report ---
Exam: KUB Exam date: 06/10/2017 1037 AM Indication: Abdominal pain Comparison: No relevant comparison images Findings: Bowel gas pattern and visceral shadows are normal. Interval placement of esophageal gastric tube in satisfactory position. Prior cholecystectomy. No demonstratable stones. No acute osseous abnormalities. Visualized lung bases are unremarkable. Impression: No acute findings PROCEDURE INTERPRETED AT [facility] DEPARTMENT OF RADIOLOGY Final Report Signed by: Michael Dave
--- NOTE | 2017-06-10 12:27 | Hospitalist Progress Note ---
<Sari Shannon - Last Filed: 06/10/17 12:23> Assessment and Plan - Time spent with patient Time spent with patient: Less than 30 minutes (1) Abdominal pain Status: Chronic Assessment and plan: 26-year-old white female with history of chronic Lyme disease and diverticulitis admitted by the hospitalist service on 06/08/2017 with abdominal pain, nausea, and vomiting due to chronic constipation. Patient is now distended with hypoactive bowel sounds and she has vomited bile multiple times this morning. Will place NG tube to low wall suction, make her n.p.o. except ice chips, Chloraseptic [place] for sore throat. She is having bowel movements but they are all watery. Looking at CT scan she does have some severe constipation with impaction in the rectal vault. We will have nurses do digital exam and remove impaction if possible. They will try soapsuds enema and mineral oil as needed. Patient is having some rectal bleeding on her tissue so we will have nurses try not to be too aggressive. Patient will require discharge on aggressive bowel regimen and will most likely need to keep on this long-term. Dr. Porter will see and examine patient and further recommendations to follow. 06/13/2017 patient has had some formed stools mixed with watery diarrhea. She continues to have left lower quadrant pain that is crampy. Dr. Willson feels that she should have gotten rid of most of her stool burden and recommends upon discharge that she maintains a bowel regimen regularly. He also feels patient should pursue gynecological evaluation for endometriosis etc. as another possible cause of her abdominal pain. Will leave NG tube clamped for right now. I will recheck patient mid afternoon to see how her nausea is. If she is not nauseated I will DC the NG tube and try clear liquid diet and hope for discharge later this evening. Dr. Porter will see and examine patient and further recommendations to follow. Current Visit: Yes Qualifiers: Abdominal location: left lower quadrant Qualified Code(s): R10.32 - Left lower quadrant pain (2) Rectal bleeding Status: Acute Current Visit: No (3) Constipation Status: Acute Current Visit: Yes Qualifiers: Constipation type: chronic idiopathic constipation Qualified Code(s): K59.04 - Chronic idiopathic constipation (4) Nausea and vomiting Status: Acute Current Visit: Yes Qualifiers: Vomiting type: vomiting of fecal matter Qualified Code(s): R11.13 - Vomiting of fecal matter Hospitalist: Subjective Interval history: Patient has had for moderate solid bowel movements since initiation of GoLYTELY through NG tube last night. Her NG tube is been clamped since 8 AM this morning and she did have some nausea late this morning. Exam - Constitutional Vitals: Period Temp Pulse Resp BP Sys/Banks Pulse Ox Last 24 Hr 97.7 F-98.4 F 70-85 16-18 111-115/65-70 97-100 Exam: 26-year-old white female, no distress, alert and oriented Chest clear CV regular rate and rhythm Abdomen mildly distended, good bowel sounds Extremities no edema Results - Labs CBC & BMP: 06/10/17 10:03 06/10/17 10:03 Lab Results: I have reviewed the past 24 hour labs - Diagnostic Findings Procedure: KUB x-ray: report reviewed by me (No acute abnormality) Specialty Discharge - Follow Up or Referrals <Luh Porter - Last Filed: 06/10/17 15:49> Hospitalist: Subjective Interval history: Stool studies are negative so far, KUB showed normal gas pattern.She was put back on an NG tube connected to low sunction because of her nausea and we will get a pelvic USS to assess her underlying endometriosis since patient is still complaining of abdominal pain.We will also give some potassium supplement. Exam - Constitutional Vitals: Period Temp Pulse Resp BP Sys/Banks Pulse Ox Last 24 Hr 97.7 F-98.8 F 70-97 16-18 94-115/53-70 97-100 Results - Labs CBC & BMP: 06/10/17 10:03 06/10/17 10:03
[2017-06-10] MEDS ORDERED: POTASSIUM CHLORIDE 20 MEQ/15 ML UDCUP PO ONE (15:44)
--- NOTE | 2017-06-10 19:51 | Ultrasound Report ---
Exam: US pelvic complete Date: 06/10/2017 3:44 PM Comparison: None Indication: Abdominal pain. History of endometriosis Findings: Prior hysterectomy and bilateral oophorectomies. Free fluid: No free fluid Bladder: Partially decompressed Impression: 1. No sonographic abnormalities the pelvis Ultrasound images were captured and stored. PROCEDURE INTERPRETED AT [facility] DEPARTMENT OF RADIOLOGY Final Report Signed by: Michael Dave
[2017-06-11] MEDS: LACTULOSE 20 GM/30 ML UDCUP PO SCH ×7 (00:01→23:15)
[2017-06-11] MEDS: MORPHINE 2 MG/1 ML SYRINGE IV PRN ×4 (02:05→20:37)
[2017-06-11] MEDS: ESTRADIOL 0.1 MG PATCH (1X WK) TRANSDERM SCH (04:00)
[2017-06-11 04:33] LABS: Basophils # 0.1 10*3/uL (0.0-0.2); Basophils % 0.8 % (0.0-0.8); Eosinophils # 0.4 10*3/uL (0.0-0.87); Eosinophils % 5.8 % (0.00-10.9); Hematocrit 36.3 VOL% (35.7-47.0); Immature Granulocytes % 0.3 %; Immature Granulocytes Absolute 0.02 #; Lymphocytes # 2.4 10*3/uL (1.4-4.0); Lymphocytes % 36.7 % (21.3-54.2); Mean Corpuscular HGB Conc 33.1 GM/DL (32-36); Mean Corpuscular Hemoglobin 28 PG (27-34); Mean Corpuscular Volume 84.2 FL (87-102); Mean Platelet Volume 9.7 FL (9.6-12.0); Monocytes # 0.5 10*3/uL (0.11-0.8); Monocytes % 8.3 % (1.7-12.7); Neutrophils # 3.1 10*3/uL (1.4-7.4); Neutrophils % 48.1 % (38.7-73.9); Platelet Count 224 T/CUMM (130-400); Red Blood Count 4.31 MC/CUMM (3.8-5.5); Red Cell Distribution Width 13.4 % (9.3-17.3); White Blood Count 6.4 T/CUMM (4-12)
[2017-06-11 04:57] LABS: Calcium 8.2 MG/DL (8.5-10.1); Osmolality,Calculated 281.8 MOS/KG (273-304); Potassium 3.4 MMOL/L (3.5-5.1)
[2017-06-11] MEDS: SODIUM CHLORIDE 0.9% 1,000 ML IV SCH ×5 (05:41→23:12)
[2017-06-11] MEDS: DOCUSATE SODIUM 100 MG CAPSULE PO SCH ×2 (09:05→20:36)
[2017-06-11] MEDS: ONDANSETRON 4 MG/2 ML VIAL IV PRN ×3 (09:05→18:37)
[2017-06-11] MEDS: BISACODYL 5 MG TABLET PO SCH (09:05)
[2017-06-11] MEDS: PANTOPRAZOLE 40 MG TABLET PO SCH (09:06)
[2017-06-11] MEDS: POLYETHYLENE GLYCOL POWDER 17 GM PACK PO SCH (09:06)
--- NOTE | 2017-06-11 10:38 | Gastrointestinal Progress Note ---
<Anat Beckmanher Rk - Last Filed: 06/11/17 10:36> Assessment and Plan (1) Abdominal pain Status: Chronic Assessment and plan: 06/11-abdominal pain is improved with moderate amount of stool following bowel purge. CT of abdomen is pending for this morning. Plan an addendum to followed by Dr. Rowe. 06/08-5 day history of abdominal pain, left lower quadrant, without fever or chills. Episodes of nausea vomiting. History of diverticulitis without reported IBD. CT of abdomen noted as below. Prior endoscopy was noted as below. IV Flagyl initiated. No leukocytosis and afebrile. Further plan an addendum to followed by Dr. Rowe Current Visit: Yes Qualifiers: Abdominal location: left lower quadrant Qualified Code(s): R10.32 - Left lower quadrant pain Gastroenterology - PN: Subj Interval history: CC: Abdominal pain Patient is seen awake alert sitting up in bed. States she is feeling much better today. She was noted to have an NG tube placed over the weekend as well as had a bowel purge with GoLYTELY with moderate amount of solid stool returned. Patient states she is feeling better and her abdominal pain is improved as well but she is still having some cramping at times. She says that she still feels like there is something "they are in my lower abdomen". Patient states that she is willing to proceed with upper and lower endoscopy to rule out any causative factors for her continued abdominal pain. She has had a pelvic ultrasound as well with no abnormality seen. CT of the abdomen from this morning and results are pending at this time. Abdomen soft, nontender. ROS: Denies shortness of breath chest pain Exam (Progress Note) - Constitutional Vitals: Period Temp Pulse Resp BP Sys/Banks Pulse Ox Last 24 Hr 97.1 F-98.8 F 66-97 16-20 94-119/50-70 96-98 General appearance: normal weight, no acute distress - Head Head exam: Present: normal inspection, normocephalic - Eye Eye exam: Present: other (Lids and conjunctive are unremarkable). Absent: scleral icterus - ENT ENT exam: Present: normal exam, normal oropharynx - Neck Neck exam: Present: normal inspection - Respiratory Respiratory exam: Present: clear to auscultation bilaterally. Absent: rales, rhonchi, wheezes - Cardiovascular Cardiovascular exam: Present: regular rate and rhythm. Absent: diastolic murmur , JVD, systolic murmur - GI/Abdominal GI/Abdominal exam: Present: normal bowel sounds, soft. Absent: ascites, distended, mass, organomegaly, tenderness - Extremities Exam Extremities exam: Present: normal inspection, full ROM - Back Exam Back exam: Present: normal inspection - Neurological Exam Neurological exam: Present: alert, oriented X3 - Psychiatric Psychiatric exam: Present: normal affect, normal mood - Skin Skin exam: Present: normal color, warm, dry Results - Labs CBC & BMP: 06/11/17 04:00 06/11/17 04:00 Lab Results: I have reviewed the past 24 hour labs - Diagnostic Findings Procedure: Ultrasound: report reviewed by me Specialty Discharge - Follow Up or Referrals <Bruce Rowe - Last Filed: 06/11/17 20:25> Exam (Progress Note) - Constitutional Vitals: Period Temp Pulse Resp BP Sys/Banks Pulse Ox Last 24 Hr 97.1 F-99 F 66-107 16-20 98-119/50-73 96-99 Results - Labs CBC & BMP: 06/11/17 04:00 06/11/17 04:00
[2017-06-11] MEDS ORDERED: BISACODYL 5 MG TABLET PO ONE (12:00)
[2017-06-11] MEDS: PROMETHAZINE 25 MG/1 ML VIAL IM PRN (12:19)
--- NOTE | 2017-06-11 12:53 | Hospitalist Progress Note ---
Assessment and Plan (1) Abdominal pain Status: Chronic Assessment and plan: Aetiology is unclear.Stool studies are negative so far, KUB showed normal gas pattern. Pelvic USS- unremarkable. Plan repeat CT abd/pelvis OBGYN to see Appreciates GI's input Current Visit: Yes Qualifiers: Abdominal location: left lower quadrant Qualified Code(s): R10.32 - Left lower quadrant pain (2) Constipation Status: Acute Assessment and plan: continue with current regime Current Visit: Yes Qualifiers: Constipation type: chronic idiopathic constipation Qualified Code(s): K59.04 - Chronic idiopathic constipation (3) Hypokalemia Status: Acute Assessment and plan: will replete, get Mg levels Current Visit: Yes Hospitalist: Subjective Interval history: Patient seen. She complained of nausea but no vomiting. KUB and pelvic USS were unremarkable. Difficult to tell what exactly is going on, patient states she feel a knot in her belly and also feels constipated. Exam - Constitutional Vitals: Period Temp Pulse Resp BP Sys/Banks Pulse Ox Last 24 Hr 97.1 F-98.4 F 66-107 16-20 99-119/50-73 96-98 General appearance: no acute distress - Eye Eye exam: Present: EOMI - Respiratory Respiratory exam: Present: clear to auscultation bilaterally - Cardiovascular Cardiovascular exam: Present: regular rate and rhythm - GI/Abdominal GI/Abdominal exam: Present: normal bowel sounds, tenderness - Extremities Exam Extremities exam: Present: normal inspection - Neurological Exam Neurological exam: Present: alert, oriented X3 Results - Labs CBC & BMP: 06/11/17 04:00 06/11/17 04:00 Lab Results: I have reviewed the past 24 hour labs Specialty Discharge - Follow Up or Referrals
[2017-06-11] MEDS ORDERED: POTASSIUM CHLORIDE 20 MEQ/15 ML UDCUP PO ONE (12:55)
[2017-06-11] MEDS ORDERED: POTASSIUM CHLORIDE 20 MEQ TABLET PO ONE (13:19)
--- NOTE | 2017-06-11 13:21 | CT Report ---
Exam: CT abdomen and pelvis without intravenous contrast Exam date: 06/11/2017 9:25 AM Clinical History: 26 years,Female, diffuse abdominal pain, generalized Technique: Axial computed tomography images of the abdomen and pelvis without intravenous contrast. All CT scans at this facility use one or more dose reduction techniques. Automated exposure control, MA/KV adjustment per patient size (including targeted exam Square dose is matched to indication) or iterative reconstruction technique Comparison: June 07, 2017 Findings: Lower thorax: No acute pathology within the lung bases. Abdomen: Liver: Unremarkable Gallbladder and bile ducts: Prior cholecystectomy. Pancreas: Pancreas is normal. Spleen: Small hypodensity within the spleen is again noted, likely benign hemangioma. Adrenals: No adrenal mass. Kidneys and ureters: Simple right renal cyst with punctate calcification within the superior pole the right kidney Stomach and bowel: No evidence of acute gastritis, colitis or enteritis. No bowel obstruction. Appendix: Prior appendectomy. Pelvis: Bladder: Unremarkable Reproductive: Prior hysterectomy. Abdomen and pelvis: Intraperitoneal space: No pneumoperitoneum. No free intraperitoneal fluid Bones/joints: No acute osseous abnormality. Soft tissues: No mass Vasculature: No aortic aneurysm. Lymph nodes: No adenopathy Impression: 1. No acute findings to explain patient's symptoms. Incidental findings as discussed above PROCEDURE INTERPRETED AT [facility] DEPARTMENT OF RADIOLOGY Final Report Signed by: Michael Dave
[2017-06-11] MEDS ORDERED: POLYETHYLENE GLYCOL POWDER 255 GM BOTTLE PO ONE (14:00)
--- NOTE | 2017-06-11 18:12 | OB/GYN Consult Note ---
Assessment and Plan (1) Abdominal pain Status: Chronic Assessment and plan: Agree with the colonoscopy, also the IV fluids, and the IV antibiotics. Would recommend if the colonoscopy is negative we will consult Dr. Grewal and general surgery to take a look intra-abdominally with a laparoscope. The pain has been persistent in the left lower quadrant overall this period of time think it would be necessary to take a look intra-abdominally. Also with the scope was inside you loss will be able to rule out endometriosis at the same time. Would prefer general surgery to perform this procedure because the possibility of having to remove colon or lyse adhesions. If endometriosis is found would recommend decreasing her estrogen and placing her on Lupron therapy for 6 months. Current Visit: Yes Qualifiers: Abdominal location: left lower quadrant Qualified Code(s): R10.32 - Left lower quadrant pain History of Present Illness Chief complaint: Chronic abdominal pain History of present illness: Ms. Esquivel is a 26 year old female 26-year-old 0, with a long history of multiple flareups of left lower quadrant pain primarily and occasional right lower quadrant pain. Patient presents at this time with nausea vomiting and severe left lower quadrant pain. Patient has a known history of diverticulitis as evidenced by a colonoscopy. She has had multiple scopes in the past for pelvic pain on other admissions which were negative. Patient occasionally gets relief with IV antibiotics however because of the reoccurrence of this particular pain and discomfort this patient is looking for answers. This patient has had a hysterectomy 6 years ago , and prior to the hysterectomy she was treated with Lupron for endometriosis. Is highly unlikely for patient who have had a complete hysterectomy to have persistent endometriosis. Home Medications Medication Instructions Recorded Confirmed Type Estradiol [Estradiol 0.1 mg/24 hr 1 patch TOP Q3D 04/27/17 06/08/17 History (2x week) Patch] Dicyclomine Cap/Tab [Bentyl 20 mg PO QID PRN #60 tablet 04/28/17 06/08/17 Rx Cap/Tab] Hydrocodone/Acetaminophen [[place] 1 each PO RT Q8H PRN #12 tablet 04/28/17 Rx 10-325 Tablet] Polyethylene Glycol Powder 17 gm PO DAILY #14 pack 04/28/17 06/08/17 Rx [Miralax] oxyCODONE/ACETAMINOPHEN 5-325 1 tablet PO Q6H #10 tablet 06/07/17 Rx [Percocet 5-325] Allergies Allergy/AdvReac Type Severity Reaction Status Date / Time levofloxacin [From Levaquin] Allergy HIVES Verified 06/07/17 18:17 Medical,Surgical,& Family Hx - Medical History Neurology: History of: Vertigo, 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) No history of: Seizures Rheumatology: History of;: Fibromyalgia, Rheumatoid Arthritis Gastrointestinal: History of: Diverticulitis/ Diverticulosis, GERD, Ulcerative Colitis Musculoskeletal: History of: Musculoskeletal Problems (ARTHRITIS, degenerative spinal disease) Other: History of: Miscellaneous Medical Problems (chronic Lyme disease followed by infectious disease with high-dose antibiot) - Surgical History Cardiac Surgeries: Sugical HX of: Vascular Access Devices (ports and PICC lines in treatment of Lymes disease) Thoracic Surgeries: Patient denies;: Lobectomy Neurologic Surgeries: Patient denies: Neurologic Surgery HEENT Surgeries: Surgical HX of: Tonsilectomy & Adenoidectomy Abdominal Surgeries: Surgical HX of: Abdominal Surgery (cholecystectomy), Appendectomy, Cholecystectomy, Colonoscopy ([place] biopsy mild inflammatory changes), EGD Reproductive Surgeries: Surgical HX of;: Gynecologic Surgery, Hysterectomy Orthopedic Surgeries: Surgical HX of;: Implanted Devices (mediport left chest) - Family History Family History: Reports;: Family Cancer (dad prostate, grandmother ovarian), Family Diabetes (dad), Family Heart Disease (dad), Family Stroke (dad) Denies;: Family Anesthesia Reaction, Family Hypertension, Family Psychiatric Problems - Social History Smoking Status: Never smoker Frequency of Alcohol Use: None Type of Drug Use: None Exam [employer] - Constitutional Vitals: Vital Signs Temp Pulse Pulse Resp BP BP Pulse Ox 06/11/17 16:51 18 06/11/17 15:51 99 F 88 18 98/61 97 06/11/17 15:00 18 06/11/17 13:11 18 06/11/17 12:15 16 06/11/17 11:55 98 F 107 H 16 111/73 96 06/11/17 11:15 18 06/11/17 09:05 20 06/11/17 07:38 78 18 06/11/17 07:15 97.6 F 78 16 99/50 96 06/11/17 07:07 18 06/11/17 04:00 97.7 F 74 18 119/65 96 06/11/17 01:21 18 06/11/17 00:01 97.1 F L 66 20 113/56 96 06/10/17 22:20 18 06/10/17 21:33 18 06/10/17 19:18 98.3 F 73 18 112/70 98 General appearance: mild distress - Head Head exam: Present: normal inspection - Eye Eye exam: Present: EOMI Pupils: Present: YOEL - ENT ENT exam: Present: normal exam - Neck Neck exam: Present: normal inspection - Respiratory Respiratory exam: Present: clear to auscultation bilaterally - Breast Breasts: as per HPI Menstruation: as per HPI (Previous hysterectomy and bilateral salpingo- oophorectomy) - Cardiovascular Cardiovascular exam: Present: regular rate and rhythm - GI/Abdominal GI/Abdominal exam: Present: tenderness, other (Tender, left lower quadrant mid quadrant aches extremely tender. ) - Back Exam Back exam: Present: normal inspection - Neurological Exam Neurological exam: Present: alert, oriented X3 - Psychiatric Psychiatric exam: Present: agitated - Skin Skin exam: Present: normal color Results - Labs CBC & BMP: 06/11/17 04:00 06/11/17 04:00
[2017-06-11] MEDS ORDERED: MAGNESIUM CITRATE 300 ML BOTTLE PO ONE (21:00)
[2017-06-11] MEDS: ZALEPLON 5 MG CAPSULE PO PRN (23:15)
[2017-06-12] MEDS: LACTULOSE 20 GM/30 ML UDCUP PO SCH ×5 (03:39→20:44)
[2017-06-12] MEDS: SODIUM CHLORIDE 0.9% 1,000 ML IV SCH ×5 (03:39→20:43)
[2017-06-12 05:07] LABS: Calcium 7.9 MG/DL (8.5-10.1); Magnesium 1.8 MG/DL (1.8-2.4); Osmolality,Calculated 283.7 MOS/KG (273-304); Potassium 3.5 MMOL/L (3.5-5.1)
[2017-06-12] MEDS: DOCUSATE SODIUM 100 MG CAPSULE PO SCH ×2 (07:59→20:44)
[2017-06-12] MEDS: POLYETHYLENE GLYCOL POWDER 17 GM PACK PO SCH (07:59)
[2017-06-12] MEDS: BISACODYL 5 MG TABLET PO SCH (07:59)
[2017-06-12] MEDS: PANTOPRAZOLE 40 MG TABLET PO SCH (07:59)
[2017-06-12] MEDS ORDERED: ESTRADIOL 0.1 MG PATCH (1X WK) TRANSDERM SCH (09:00)
--- NOTE | 2017-06-12 10:38 | History and Physical Update ---
History and Physical Update - Physical Exam Mental Status: alert and oriented Heart: regular rate and rhythm Lung: clear to auscultation Abdomen: within normal limits Vitals: within normal limits
--- NOTE | 2017-06-12 10:59 | Operative Note ---
Date of procedure: 06/12/17 Pre-op diagnosis: Change in bowel habits with abdominal pain Procedure: Colonoscopy 26-year-old white female with recent increasing constipation complicating chronic abdominal complaints of left lower quadrant pain now recurrent for colonoscopy to evaluate for possible obstruction. Informed consent was obtained from the patient She was sedated with general anesthesia per anesthesia protocol. Patient was placed in left lateral decubitus position digital exam was normal the Olympus flexible video colonoscope inserted and canal advanced under direct vision level cecum identified ileocecal valve appendiceal orifice. Withdrawal time 8 minutes Prep fair to good Findings: Cecum identified ileocecal valve appendiceal orifice normal Terminal ileum-normal Ascending colon-normal Transverse colon-normal Descending colon-mild diverticulosis otherwise normal Sigmoid colon-mild diverticulosis otherwise normal Rectum-normal to direct and retroflexed views Patient our procedure well she is discharge recovery in good condition Postop diagnosis: 1. Diverticulosis-maintain adequate fiber and fluid intake. Consider antispasmodic treatment. No definitive findings to explain her severity of pain and continued workup for suspected endometriosis and scarring will need to be entertained. Continued use of MiraLAX daily may be helpful Anesthesia: other (General) Surgeon / Physician: Bruce Rowe Estimated blood loss: none Specimens: none sent Condition: stable Disposition: post procedure unit Results - Labs CBC & BMP: 06/11/17 04:00 06/12/17 04:00 Discharge Plan - Discharge Medications New oxyCODONE/ACETAMINOPHEN 5-325 [Percocet 5-325] 1 tablet PO Q6H #10 tablet No Action Estradiol [Estradiol 0.1 mg/24 hr (2x week) Patch] 1 patch TOP Q3D Polyethylene Glycol Powder [Miralax] 17 gm PO DAILY #14 pack Dicyclomine Cap/Tab [Bentyl Cap/Tab] 20 mg PO QID PRN #60 tablet PRN Reason: Abdominal Pain Hydrocodone/Acetaminophen [[place] 10-325 Tablet] 1 each PO RT Q8H PRN #12 tablet PRN Reason: Pain - Follow Up or Referral - Forms/Instructions Instructions: Cefuroxime (By mouth), Metronidazole (By mouth)
--- NOTE | 2017-06-12 11:06 | Anesthesia Post-Op ---
Anesthesia Post OP - Post Ansesthetic Evaluation Patient seen in post op: Yes Resp: within normal limits CV: within normal limits Mental: within normal limits Temp: within normal limits [id number]: within normal limits Nausea and Vomiting: within normal limits Pain: within normal limits Other:: comlains of no nause in recovery room
--- NOTE | 2017-06-12 13:45 | General Surgery Consult Note ---
Assessment and Plan (1) Abdominal pain, chronic, left lower quadrant Status: Acute Assessment and plan: The patient is a history of endometriosis and previous abdominal procedures and this certainly could risk for adhesions which could be the cause of her left lower quadrant pain. Options of diagnostic laparoscopy, second opinion, or monitoring were reviewed with the patient. At this point she opts for diagnostic laparoscopy, and it was discussed that for laparotomy may be required pending the intraoperative findings. The risks the procedure were reviewed with the patient including but not limited to injury to adjacent structures, partial or no relief of her current symptoms, infection, bleeding, wound healing complications, herniation, the need for additional procedures, and /or chronic pain. She is aware of a diagnosis may not be made to explain her chronic left lower quadrant pain by this procedure. Proceed in the morning. Current Visit: Yes History of Present Illness Chief complaint: LLQ pain History of present illness: Ms. Esquivel is a 26 year old female with past medical history of diverticulosis , endometriosis, and chronic constipation who is currently admitted for evaluation of left lower quadrant pain. She was admitted on 06/07/2017 with left lower quadrant pain, nausea and vomiting. By CT there was identification of constipation for which she was treated at that time. After multiple days of therapy she passed a large bowel movement yesterday without noted hematochezia or melena. Patient reports dealing with a left upper quadrant pain for approximately 2 years most significant since July 2016. She reports the pain in the left lower quadrant is constant with out any relieving or exacerbating factors including position, appetite, constipation, bowel movement. She reports intermittent treatment medically for diverticulitis, but there is no imaging evidence of diverticulitis based on CT images reviewed from this facility; patient reports she is only been treated at this facility. In review of the images in our system, there has been mild inflammatory changes indicative of colitis the patient has undergone appendectomy, cholecystectomy, and hysterectomy all laparoscopically in the past; she has a history of endometriosis and has undergone diagnostic pelvic laparoscopic in the past as well. Colonoscopy was performed today and evidence of diverticulosis only present; no inflammatory changes were reported. Drs. Rowe and Meghan have consulted on this case. She had EGD and colonoscopy performed March 2016 with findings of gastrointestinal reflux disease, and hiatal hernia; biopsies obtained in perceived normal colonoscopy indicated self limited colitis. Repeat EGD and flexible sigmoidoscopy were performed July 2016 with unchanged findings on EGD and pathology from rectal biopsy showed supplemented colitis again. Home Medications Medication Instructions Recorded Confirmed Type Estradiol [Estradiol 0.1 mg/24 hr 1 patch TOP Q3D 04/27/17 06/08/17 History (2x week) Patch] Dicyclomine Cap/Tab [Bentyl 20 mg PO QID PRN #60 tablet 04/28/17 06/08/17 Rx Cap/Tab] Hydrocodone/Acetaminophen [[place] 1 each PO RT Q8H PRN #12 tablet 04/28/17 Rx 10-325 Tablet] Polyethylene Glycol Powder 17 gm PO DAILY #14 pack 04/28/17 06/08/17 Rx [Miralax] oxyCODONE/ACETAMINOPHEN 5-325 1 tablet PO Q6H #10 tablet 06/07/17 Rx [Percocet 5-325] Allergies Allergy/AdvReac Type Severity Reaction Status Date / Time levofloxacin [From Levaquin] Allergy HIVES Verified 06/07/17 18:17 Medical,Surgical,& Family Hx - Medical History Neurology: History of: Vertigo, 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) No history of: Seizures Rheumatology: History of;: Fibromyalgia Gastrointestinal: History of: Diverticulitis/ Diverticulosis, GERD, GI Problems (Chronic constipation) Musculoskeletal: History of: Musculoskeletal Problems (ARTHRITIS, degenerative spinal disease) Other: History of: Miscellaneous Medical Problems (chronic Lyme disease followed by infectious disease with high-dose antibiot) - Surgical History Cardiac Surgeries: Sugical HX of: Vascular Access Devices (ports and PICC lines in treatment of Lymes disease) HEENT Surgeries: Surgical HX of: Tonsilectomy & Adenoidectomy Abdominal Surgeries: Surgical HX of: Appendectomy, Cholecystectomy, Colonoscopy ([place] biopsy mild inflammatory changes), EGD Reproductive Surgeries: Surgical HX of;: Gynecologic Surgery, Hysterectomy Orthopedic Surgeries: Surgical HX of;: Implanted Devices (mediport left chest) - Family History Family History: Reports;: Family Cancer (dad prostate, grandmother ovarian), Family Diabetes (dad), Family Heart Disease (dad), Family Stroke (dad) Denies;: Family Anesthesia Reaction, Family Hypertension, Family Psychiatric Problems - Social History Smoking Status: Never smoker Frequency of Alcohol Use: None Type of Drug Use: None - Constitutional Constitutional: Absent: anorexia, chills, fatigue, lethargy, weight gain, weight loss - Cardiovascular Cardiovascular: Absent: chest pain at rest, chest pain with activity, orthopnea - Respiratory Respiratory: Absent: cough, wheezing - Gastrointestinal Gastrointestinal: Present: as per HPI - Genitourinary Genitourinary: Absent: dysuria, flank pain Hematologic/Lymphatic: Absent: easy bleeding, easy bruising Exam - Constitutional Vitals: Period Temp Pulse Resp BP Sys/Banks Pulse Ox Last 24 Hr 96.9 F-99.0 F 56-88 17-20 84-123/51-78 92-100 General appearance: normal weight, no acute distress - Head Head exam: Present: atraumatic - Eye Eye exam: Absent: scleral icterus - Respiratory Respiratory exam: Present: clear to auscultation bilaterally - Cardiovascular Cardiovascular exam: Present: RRR - GI/Abdominal GI/Abdominal exam: Present: normal bowel sounds, tenderness (Left lower quadrant ), soft. Absent: distended, rebound - Neurological Exam Neurological exam: Present: alert, oriented X3 Speech: Present: normal Results - Labs CBC & BMP: 06/11/17 04:00 06/12/17 04:00 Lab Results: I have reviewed the past 24 hour labs - Diagnostic Findings Procedure: CT Abdomen and Pelvis: image reviewed by me, report reviewed by me ( 7 CT scan reports of the abdomen and pelvis reviewed from March 2016 to present) Specialty Discharge - Follow Up or Referrals
--- NOTE | 2017-06-12 15:03 | Hospitalist Progress Note ---
Assessment and Plan (1) Abdominal pain Status: Chronic Assessment and plan: Aetiology is unclear.Stool studies are negative so far, KUB showed normal gas pattern. Pelvic USS- unremarkable.CT showed no acute findings.She had a colonoscopy this am which showed diverticulosis with no evidence of diverticulitis. Surgery was consulted and she is scheduled for a diagnostic laparoscopy with a possible laparatomy in am. GI, Surgery and OBGYN are following. Plan continue pain meds and subspecialities' recommendations Current Visit: Yes Qualifiers: Abdominal location: left lower quadrant Qualified Code(s): R10.32 - Left lower quadrant pain (2) Constipation Status: Acute Assessment and plan: continue with current regime Current Visit: Yes Qualifiers: Constipation type: chronic idiopathic constipation Qualified Code(s): K59.04 - Chronic idiopathic constipation (3) Hypokalemia Status: Acute Assessment and plan: Improved Current Visit: Yes Hospitalist: Subjective Interval history: Patient seen and she still complains of an abdominal pain.. She had a colonoscopy this am which showed diverticulosis with no evidence of diverticulitis. Surgery was consulted and she is scheduled for a diagnostic laparoscopy with a possible laparatomy in am. Exam - Constitutional Vitals: Period Temp Pulse Resp BP Sys/Banks Pulse Ox Last 24 Hr 96.9 F-99.0 F 56-88 17-20 84-123/51-78 92-100 General appearance: no acute distress - Head Head exam: Present: normal inspection - Eye Eye exam: Present: EOMI - Respiratory Respiratory exam: Present: clear to auscultation bilaterally - Cardiovascular Cardiovascular exam: Present: regular rate and rhythm - GI/Abdominal GI/Abdominal exam: Present: normal bowel sounds - Extremities Exam Extremities exam: Present: normal inspection Results - Labs CBC & BMP: 06/11/17 04:00 06/12/17 04:00 Lab Results: I have reviewed the past 24 hour labs Specialty Discharge - Follow Up or Referrals
[2017-06-12] MEDS: ONDANSETRON 4 MG/2 ML VIAL IV PRN (18:24)
[2017-06-12] MEDS: MORPHINE 2 MG/1 ML SYRINGE IV PRN (21:38)
[2017-06-12] MEDS: ZALEPLON 5 MG CAPSULE PO PRN (21:38)
[2017-06-12] MEDS: PROMETHAZINE 25 MG/1 ML VIAL IM PRN (21:49)
[2017-06-13] MEDS: LACTULOSE 20 GM/30 ML UDCUP PO SCH ×5 (01:16→16:29)
[2017-06-13] MEDS: ONDANSETRON 4 MG/2 ML VIAL IV PRN (04:27)
[2017-06-13] MEDS: MORPHINE 2 MG/1 ML SYRINGE IV PRN ×2 (04:31→12:16)
[2017-06-13 04:59] LABS: Basophils % 0.4 % (0.0-0.8); Eosinophils # 0.2 10*3/uL (0.0-0.87); Eosinophils % 2.9 % (0.00-10.9); Hematocrit 33.7 VOL% (35.7-47.0); Hemoglobin 11.7 GM/DL (12.0-16.0); Immature Granulocytes % 0.4 %; Immature Granulocytes Absolute 0.03 #; Lymphocytes # 2.6 10*3/uL (1.4-4.0); Lymphocytes % 33.6 % (21.3-54.2); Mean Corpuscular HGB Conc 34.7 GM/DL (32-36); Mean Corpuscular Hemoglobin 29 PG (27-34); Mean Corpuscular Volume 82.4 FL (87-102); Mean Platelet Volume 10.3 FL (9.6-12.0); Monocytes # 0.5 10*3/uL (0.11-0.8); Monocytes % 6.8 % (1.7-12.7); Neutrophils # 4.3 10*3/uL (1.4-7.4); Neutrophils % 55.9 % (38.7-73.9); Platelet Count 234 T/CUMM (130-400); Red Blood Count 4.09 MC/CUMM (3.8-5.5); Red Cell Distribution Width 13.5 % (9.3-17.3); White Blood Count 7.7 T/CUMM (4-12)
[2017-06-13] MEDS: SODIUM CHLORIDE 0.9% 1,000 ML IV SCH ×2 (05:11→12:59)
[2017-06-13 05:27] LABS: Calcium 8.1 MG/DL (8.5-10.1); Osmolality,Calculated 284.7 MOS/KG (273-304); Potassium 3.3 MMOL/L (3.5-5.1)
[2017-06-13] MEDS ORDERED: BUPIVACAINE 0.25% 50 ML VIAL ONE (06:31)
[2017-06-13] MEDS ORDERED: LIDOCAINE 1%/EPI INJ 20 ML VIAL ONE (06:31)
[2017-06-13] MEDS ORDERED: SUGAMMADEX 200 MG/2 ML VIAL IV ONE (08:32)
--- NOTE | 2017-06-13 08:42 | Anesthesia Post-Op ---
Anesthesia Post OP - Post Ansesthetic Evaluation Patient seen in post op: Yes Resp: within normal limits CV: within normal limits Mental: within normal limits Temp: within normal limits [id number]: within normal limits Nausea and Vomiting: within normal limits Pain: within normal limits
[2017-06-13] MEDS ORDERED: PROPOFOL 200 MG/20 ML VIAL IV ONE (08:58)
[2017-06-13] MEDS ORDERED: MIDAZOLAM 2 MG/2 ML VIAL ONE (08:58)
[2017-06-13] MEDS ORDERED: HYDROmorphone 2 MG/1 ML VIAL ONE (08:58)
[2017-06-13] MEDS ORDERED: fentaNYL 100 MCG/2 ML VIAL ONE (08:58)
[2017-06-13] MEDS ORDERED: SEVOFLURANE 1 UNIT/15 MINUTE INH ONE (08:58)
[2017-06-13] MEDS ORDERED: ACETAMINOPHEN 1,000 MG/100 ML VIAL IV ONE (08:59)
[2017-06-13] MEDS ORDERED: NEOSTIGMINE 10 MG/10 ML VIAL ONE (08:59)
[2017-06-13] MEDS ORDERED: GLYCOPYRROLATE 0.4 MG/2 ML VIAL ONE ×2 (08:59)
[2017-06-13] MEDS ORDERED: DEXAMETHASONE 10 MG/1 ML VIAL ONE (08:59)
[2017-06-13] MEDS ORDERED: ONDANSETRON 4 MG/2 ML VIAL ONE (08:59)
[2017-06-13] MEDS ORDERED: METOCLOPRAMIDE 10 MG/2 ML VIAL ONE (08:59)
[2017-06-13] MEDS ORDERED: LACTATED RINGERS 1,000 ML IV ONE (09:00)
[2017-06-13] MEDS ORDERED: ROCURONIUM 100 MG/10 ML VIAL IV ONE (09:00)
[2017-06-13] MEDS ORDERED: SUCCINYLCHOLINE 200 MG/10 ML VIAL ONE (09:00)
--- NOTE | 2017-06-13 09:43 | Gastrointestinal Progress Note ---
<Cari Beckman - Last Filed: 06/13/17 09:41> Assessment and Plan (1) Abdominal pain Status: Chronic Assessment and plan: 06/13-postop exploratory laparotomy this morning. Operative report is pending. Plan an addendum to follow Dr. Rowe. 06/11-abdominal pain is improved with moderate amount of stool following bowel purge. CT of abdomen is pending for this morning. Plan an addendum to followed by Dr. Rowe. 06/08-5 day history of abdominal pain, left lower quadrant, without fever or chills. Episodes of nausea vomiting. History of diverticulitis without reported IBD. CT of abdomen noted as below. Prior endoscopy was noted as below. IV Flagyl initiated. No leukocytosis and afebrile. Further plan an addendum to followed by Dr. Rowe Qualifiers: Abdominal location: left lower quadrant Qualified Code(s): R10.32 - Left lower quadrant pain Gastroenterology - PN: Subj Interval history: CC: Abdominal pain Patient is seen, awake and alert just returning from exploratory laparotomy this morning. She is doing well postprocedure. Her C scope on yesterday was noted with only findings of diverticulosis. Her surgical report from this morning is pending at this time however family states that there was a " area" found in her abdomen that was felt to be the source of her pain as well as she had lysis of adhesions. Abdomen is soft, normal postoperative tenderness. ROS: Denies shortness of breath or chest pain Exam (Progress Note) - Constitutional Vitals: Period Temp Pulse Resp BP Sys/Banks Pulse Ox Last 24 Hr 96.4 F-98.1 F 58-105 16-20 90-130/52-88 95-100 General appearance: normal weight, no acute distress - Head Head exam: Present: normal inspection, normocephalic - Eye Eye exam: Present: other (Lids and conjunctive are unremarkable). Absent: scleral icterus - ENT ENT exam: Present: normal exam, normal oropharynx - Neck Neck exam: Present: normal inspection - Respiratory Respiratory exam: Present: clear to auscultation bilaterally. Absent: rales, rhonchi, wheezes - Cardiovascular Cardiovascular exam: Present: regular rate and rhythm. Absent: diastolic murmur , JVD, systolic murmur - GI/Abdominal GI/Abdominal exam: Present: normal bowel sounds, tenderness, soft. Absent: ascites, distended, mass, organomegaly - Extremities Exam Extremities exam: Present: normal inspection, full ROM - Back Exam Back exam: Present: normal inspection - Neurological Exam Neurological exam: Present: alert, oriented X3 - Psychiatric Psychiatric exam: Present: normal affect, normal mood - Skin Skin exam: Present: normal color, warm, dry Results - Labs CBC & BMP: 06/13/17 04:00 06/13/17 04:00 Lab Results: I have reviewed the past 24 hour labs Specialty Discharge - Follow Up or Referrals Follow up with: Percy Christianson MD [Physician] - 06/27/17 10:45 am <Bruce Rowe - Last Filed: 06/13/17 21:03> Exam (Progress Note) - Constitutional Vitals: Period Temp Pulse Resp BP Sys/Banks Pulse Ox Last 24 Hr 97.7 F-98.4 F 58-105 16-20 101-130/58-88 96-100 Results - Labs CBC & BMP: 06/13/17 04:00 06/13/17 04:00
--- NOTE | 2017-06-13 09:59 | Hospitalist Progress Note ---
Assessment and Plan (1) Abdominal pain Status: Chronic Assessment and plan: Aetiology is unclear.Stool studies are negative so far, KUB showed normal gas pattern. Pelvic USS- unremarkable.CT showed no acute findings.She had a colonoscopy this am which showed diverticulosis with no evidence of diverticulitis. GI, Surgery and OBGYN are following.She had an exploratory laparotomy this morning. She is doing well postprocedure. Plan Follow Surgery's recommendations Current Visit: Yes Qualifiers: Abdominal location: left lower quadrant Qualified Code(s): R10.32 - Left lower quadrant pain (2) Constipation Status: Acute Assessment and plan: continue with current regime Current Visit: Yes Qualifiers: Constipation type: chronic idiopathic constipation Qualified Code(s): K59.04 - Chronic idiopathic constipation (3) Hypokalemia Status: Acute Assessment and plan: will replete Current Visit: Yes Hospitalist: Subjective Interval history: 26yr old admitted with abdominal pain. Aetiology is unclear.Stool studies are negative so far, KUB showed normal gas pattern. Pelvic USS- unremarkable.CT showed no acute findings.She had a colonoscopy this am which showed diverticulosis with no evidence of diverticulitis.Patient had an exploratory laparotomy this morning. She is doing well postprocedure.The details of surgery is pending. We will probably observe for another night and hopefully dc in am. Exam - Constitutional Vitals: Period Temp Pulse Resp BP Sys/Banks Pulse Ox Last 24 Hr 96.4 F-98.1 F 58-105 16-20 90-130/52-88 95-100 General appearance: no acute distress - Head Head exam: Present: normal inspection - Respiratory Respiratory exam: Present: clear to auscultation bilaterally - Cardiovascular Cardiovascular exam: Present: regular rate and rhythm - GI/Abdominal GI/Abdominal exam: Present: other (mild tenderness) - Extremities Exam Extremities exam: Present: normal inspection Results - Labs CBC & BMP: 06/13/17 04:00 06/13/17 04:00 Lab Results: I have reviewed the past 24 hour labs Specialty Discharge - Follow Up or Referrals
[2017-06-13] MEDS: BISACODYL 5 MG TABLET PO SCH (10:11)
[2017-06-13] MEDS: DOCUSATE SODIUM 100 MG CAPSULE PO SCH (10:11)
[2017-06-13] MEDS: POLYETHYLENE GLYCOL POWDER 17 GM PACK PO SCH (10:11)
[2017-06-13] MEDS: PANTOPRAZOLE 40 MG TABLET PO SCH (10:26)
[2017-06-13] MEDS ORDERED: KETOROLAC 30 MG/1 ML VIAL ONE (10:39)
[2017-06-13] MEDS ORDERED: DEXTROSE 5% KCL 20 MEQ 20 MEQ/1,000 ML BAG IV SCH (11:00)
--- NOTE | 2017-06-13 12:55 | Operative Note ---
Pre-op diagnosis: Left lower quadrant pain Post-op diagnosis: same Procedure: Procedure performed: Diagnostic laparoscopy with lysis of adhesions #2 resection of intra-abdominal lesion (suspected infarcted epiploic appendage) Procedure in detail: After informed consent was obtained, the patient was taken to the operating suite lies upon the operating table. After general anesthesia was induced Starr catheter placed and abdomen was prepped and draped in usual sterile fashion. After procedural pause local anesthetic was infiltrated in the skin and subcutaneous tissue and a supraumbilical incision was made. Dissection carried down through the soft tissue and the fascia was grasped with [place]'s and elevated. Fascial incision was made in the abdominal cavity was entered bluntly. Finger sweep revealed no adhesions. [place] trocar was placed under direct visualization. Pneumoperitoneum was achieved. The camera was inserted bowel and mesentery inspected and found to be free of any violation. Patient was placed in Trendelenburg position. 2 separate 5 mm trochars were placed in the left abdomen. Survey of the abdomen was performed and easily identified was a reddish appearing lesion adjacent to the sigmoid/descending colon junction. It was approximately a centimeter in diameter. This lesion was grasped and elevated and it appeared to be on a small stalk which appeared twisted. This had the appearance of an infarcted epiploic appendage. I transected the salt stalk and the specimen was removed and sent to pathology. There is good hemostasis at the stalk transection site. Remarkably the abdomen was free of adhesions except there was one adhesion in the left lower quadrant from the colon to the lateral abdominal wall. I doubt this was the source of her pain but a lysis was performed. The pelvis was free of adhesions and the small bowel easily delivered from the pelvis. The small bowel was run retrograde from the ileocecal valve to the ligament of Treitz. There was no pathology identified. The colon was examined and run and there was no pathology at NC anything along the peritoneum. She had a previous appendectomy and cholecystectomy. Liver stomach and the visualized portion of the spleen appeared normal. Saw nothing else to suggest any abdominal pain other than the infarcted epiploic appendage. There was no active inflammatory process within the abdomen. The trochars were removed and the abdomen desufflated. Fascia at the [place] trocar site closed using 0 Vicryl [id number] interrupted suture. Wounds were thoroughly irrigated and suctioned. Deep dermal layer closed with 3-0 Vicryl. 4-0 Monocryl used to close the skin. Sterile dressings applied. Patient was extubated and taken recovery room in stable condition. All lap and needle counts correct at the end of the case. Anesthesia: GETA Surgeon / Physician: Percy Christianson Estimated blood loss: other (Less than 10 cc) Specimens: other (Left lower quadrant lesion, probably an infarcted epiploic appendage) Condition: stable Disposition: PACU Results - Labs CBC & BMP: 06/13/17 04:00 06/13/17 04:00 Discharge Plan - Discharge Medications New oxyCODONE/ACETAMINOPHEN 5-325 [Percocet 5-325] 1 tablet PO Q6H #10 tablet oxyCODONE/ACETAMINOPHEN 5-325 [Percocet 5-325] 1 - 2 tablet PO Q4-6H PRN #40 tablet PRN Reason: Pain Moderate To Severe (4-10) No Action Estradiol [Estradiol 0.1 mg/24 hr (2x week) Patch] 1 patch TOP Q3D Polyethylene Glycol Powder [Miralax] 17 gm PO DAILY #14 pack Dicyclomine Cap/Tab [Bentyl Cap/Tab] 20 mg PO QID PRN #60 tablet PRN Reason: Abdominal Pain Hydrocodone/Acetaminophen [[place] 10-325 Tablet] 1 each PO RT Q8H PRN #12 tablet PRN Reason: Pain - Follow Up or Referral Follow Up: Percy Christianson MD [Physician] - 06/27/17 10:45 am - Forms/Instructions Forms: Acute Care Work/School Release Instructions: Cefuroxime (By mouth), Metronidazole (By mouth), Exploratory Laparoscopy (DC)
[2017-06-13 16:09] VITALS: BP 112/62
[2017-06-13] MEDS ORDERED: HEPARIN LOCK FLUSH 500 UNIT/5 ML SYRINGE IV PRN (16:24)
--- NOTE | 2017-06-13 16:40 | Discharge Summary ---
<DustinNorberto - Last Filed: 06/13/17 17:59> Hospital Course - Hospital Course Hospital Course: Ms. Esquivel is a 26-year-old female who presented to the emergency room on 06/08 with complaints of severe abdominal pain. On further exam the patient appears to have chronic constipation and was admitted for further evaluation and treatment. The patient's hospital course was relatively complicated as she was seen by several specialists in an attempt to identify the source of her discomfort. She was seen by gastroenterology, gynecology, and general surgery who eventually elected to perform a diagnostic laparoscopy with lysis of adhesions and resection of an intra-abdominal lesion. Also review of the abdomen, a reddish appearing lesion adjacent to the sigmoid/descending colon junction was identified and noted to be approximately 1 cm in diameter. This lesion was elevated and appeared to be on a small stalk which appeared twisted. General surgery suggests this lesion appeared to be an infarcted epiploic appendage. It was transected and sent to pathology. Patient returned to her room in stable condition. On exam today patient is feeling much better and more comfortable. While hospitalized, the patient was also given adequate laxatives to induce bowel movement was further eased her discomfort. At this time, she is stable for discharge home. She is to follow-up with general surgery, Dr. Christianson, on June 27, 2017 for postsurgical consultation and results of pathology report. She will be sent home with Percocet 5-325 per surgery and 500 ml lactulose as needed. I have personally seen and examined this patient today. I agree with the above note as prepared by the advanced practice provider. I agree with the assessment and plan. - Time spent with patient Time with patient DS: Greater than 30 minutes Diagnosis - Discharge Diagnosis (1) Epiploic appendagitis due to ischemia Status: Acute (2) Abdominal pain Status: Resolved (3) Constipation Status: Resolved Specialty Discharge - Follow Up or Referrals Follow up with: Percy Christianson MD [Physician] - 06/27/17 10:45 am Discharge Plan - Discharge Data Disposition: Disch To Home/Self Care Condition at Discharge: Stable Discharge Diet: advance to your usual diet Activity: resume usual activities as tolerated Hygiene: no restrictions Weight Bearing at Discharge: full weight bearing Driving: no restrictions Contact your physician if you experience:: fever over 101, Nausea/Vomiting - Discharge Medications New Docusate Sodium Cap [Colace Cap] 100 mg PO BID capsule Mineral Oil Enema [Fleet Mineral Oil Enema] 133 ml RECTAL DAILY PRN bottle PRN Reason: Constipation Lactulose 20 gm PO BID PRN #500 ml PRN Reason: Constipation oxyCODONE/ACETAMINOPHEN 5-325 [Percocet 5-325] 1 tablet PO Q6H #10 tablet oxyCODONE/ACETAMINOPHEN 5-325 [Percocet 5-325] 1 - 2 tablet PO Q4-6H PRN #40 tablet PRN Reason: Pain Moderate To Severe (4-10) Bisacodyl Tab [Dulcolax Tab] 10 mg PO DAILY #0 tablet Continue Estradiol [Estradiol 0.1 mg/24 hr (2x week) Patch] 1 patch TOP Q3D Polyethylene Glycol Powder [Miralax] 17 gm PO DAILY #14 pack Dicyclomine Cap/Tab [Bentyl Cap/Tab] 20 mg PO QID PRN #60 tablet PRN Reason: Abdominal Pain Hydrocodone/Acetaminophen [[place] 10-325 Tablet] 1 each PO RT Q8H PRN #12 tablet PRN Reason: Pain - Follow Up or Referral Follow Up: Percy Christianson MD [Physician] - 06/27/17 10:45 am - Forms/Instructions Forms: Acute Care Work/School Release Instructions: Cefuroxime (By mouth), Metronidazole (By mouth), Exploratory Laparoscopy (DC) Exam - Constitutional Vitals: Period Temp Pulse Resp BP Sys/Banks Pulse Ox Last 24 Hr 96.4 F-98.4 F 58-105 16-20 97-130/55-88 96-100 General appearance: normal weight, no acute distress - Head Head exam: Present: normal inspection, normocephalic, atraumatic - Eye Eye exam: Present: EOMI Pupils: Present: YOEL - ENT ENT exam: Present: normal exam, normal external ear exam - Neck Neck exam: Present: normal inspection. Absent: lymphadenopathy, tenderness, thyromegaly - Respiratory Respiratory exam: Present: clear to auscultation bilaterally. Absent: rales, rhonchi, wheezes - GI/Abdominal GI/Abdominal exam: Present: normal bowel sounds, tenderness, soft - Extremities Exam Extremities exam: Present: normal inspection, normal capillary refill, full ROM. Absent: edema - Neurological Exam Neurological exam: Present: alert, oriented X3, CN II-XII intact, reflexes normal - Psychiatric Psychiatric exam: Present: normal affect, normal mood - Skin Skin exam: Present: normal color, warm, dry. Absent: erythema Discharge Results Procedures and tests throughout hospitalization: Pending Orders 06/09/17 18:01 Blood Culture Routine 06/12/17 16:38 Test, Urine Stat 06/14/17 04:00 Basic Metabolic Panel IN AM Comp Blood Count Auto Diff IN AM Labs on day of discharge: Labs from last 24 hours 06/13/17 06/13/17 04:00 04:00 WBC 7.7 RBC 4.09 Hgb 11.7 L Hct 33.7 L MCV 82.4 L MCH 29 MCHC 34.7 RDW 13.5 Plt Count 234 MPV 10.3 Neut % (Auto) 55.9 Lymph % (Auto) 33.6 [place] % (Auto) 6.8 Eos % (Auto) 2.9 Baso % (Auto) 0.4 Neut # (Auto) 4.3 Lymph # (Auto) 2.6 [place] # (Auto) 0.5 Eos # (Auto) 0.2 Baso # (Auto) 0.0 Immature Gran % 0.4 Nucleated RBC % 0.0 Immature Gran # 0.03 Nucleated RBCs # 0.00 Immature Plt Fraction 0.0 Sodium 145 Potassium 3.3 L Chloride 112 H Carbon Dioxide 27 Anion Gap 9.3 BUN 5 L Creatinine 0.50 L GFR Calculation 142 BUN/Creatinine Ratio 10.00 Glucose 93 Calculated Osmolality 284.7 Calcium 8.1 L Preliminary micro results at discharge 06/09/17 18:01 Blood Culture - Preliminary Blood No growth at 3 days 06/09/17 18:01 Blood Culture - Preliminary Blood No growth at 3 days DS: Provider Date of admission: 06/08/17 01:14 Primary care physician: Radha Dave NP Attending physician on admission: Marj Durbin MD Consults: 06/08/17 01:14 Consult to Physician [CONS] Routine Comment: abdominal pain, chronic constipation Consulting Provider: Bruce Rowe Consulting Provider Notified: Yes When should Consulting Provider be notified: Now Consult to Specialist Group: Gastroenterology When should Consulting Provider be notified: Now Person Notified: PETE Date Notified: 06/08/17 Time Notified: 09:24 06/11/17 09:31 Consult to Physician [CONS] Routine Comment: hx endometrosis Consulting Provider: Moustapha Tirado Consulting Provider Notified: Yes When should Consulting Provider be notified: Now Consult to Specialist Group: OBGYN When should Consulting Provider be notified: Now Person Notified: VICENTA Date Notified: 06/11/17 Time Notified: 11:30 06/11/17 18:19 Consult to Physician [CONS] Routine Comment: lower quadrant pain needs ex-lap Consulting Provider: Sarkis Moncada Consult Notification Comment: DR MONCADA IS OUT OF TOWN,WILL MAKE AN APPT FOR NEXT WEEK WHEN PT IS DISCHARGED Dr. Tirado is calling him. Discharging clinician: Norberto UMANA Expected date of discharge: 06/13/17 <Marj Durbin - Last Filed: 06/14/17 07:13> Hospital Course - Time spent with patient Time with patient DS: Greater than 30 minutes (Total discharge time for this patient, including [id number] time, clinical documentation, medication reconciliation, and discharge planning was 37 minutes.) Diagnosis - Discharge Diagnosis (1) Epiploic appendagitis due to ischemia Status: Acute (2) Constipation Status: Resolved (3) Nausea and vomiting Status: Resolved (4) Abdominal pain Status: Resolved
--- NOTE | 2017-06-14 18:18 | Pathology Report from [facility] ---
[facility] ACCESSION # : [id number] PATIENT NAME : Jania Esquivel ORDERING DR : Percy Christianson MD CLINICAL HX: Abd pain, chronic LT lower quadrant POST-OP DX: Same SPECIMEN INFO: Endometriosis vs infarcted epiploic appendagitis GROSS DESCRIPTION: Received fresh labeled JANIA ESQUIVEL is a 1.3 x 1 x up to 0.5 cm erythematous tissue fragment sectioned and submitted in one cassette. DIAGNOSIS FOR JANIA ESQUIVEL : ABDOMINAL SOFT TISSUE: Fibroadipose tissue with vascular congestion and acute hemorrhage. No endometriosis or acute inflammation seen. COLLECTED DATE: 06/13/2017 [facility] REPORT DATE: 06/14/2017 ELECTRONICALLY SIGNED BY: Katty Kaplan M.D. 06/14/2017 - 13:13:13 [facility]
== END 2017-06-13 17:20 | disposition home or self-care (01) | DRG 330 ==
LOC: N.EDINP 17:49 → N.ED 17:49 → SUATTDRO 06-08 01:14 → OBSVTOIN 06-08 01:14 → N.4E 06-08 01:49
PROVIDERS: ADMIT Family Medicine; ATTEND Internal Medicine

== ENCOUNTER 2022-08-21 09:02 | Observation (INO) ==
[2022-08-21] MEDS ORDERED: ASPIRIN 325 MG TABLET PO STA (09:39)
[2022-08-21] MEDS ORDERED: SODIUM CHLORIDE 0.9% 1,000 ML IV STA (09:39)
[2022-08-21 10:04] LABS: Basophils % 0.6 % (0.0-0.8); Eosinophils # 0.1 10*3/uL (0.0-0.87); Hematocrit 42.1 VOL% (35.7-47.0); Hemoglobin 13.7 GM/DL (12.0-16.0); Immature Granulocytes % 0.4 %; Immature Granulocytes Absolute 0.03 #; Lymphocytes # 1.7 10*3/uL (1.4-4.0); Lymphocytes % 24.1 % (21.3-54.2); Mean Corpuscular HGB Conc 32.5 GM/DL (32-36); Mean Corpuscular Volume 83.5 FL (87-102); Monocytes # 0.4 10*3/uL (0.11-0.8); Monocytes % 5.8 % (1.7-12.7); Neutrophils % 68.1 % (38.7-73.9); Platelet Count 246 T/CUMM (130-400); Red Blood Count 5.04 MC/CUMM (3.8-5.5); Red Cell Distribution Width 14.1 % (9.3-17.3); White Blood Count 7.2 T/CUMM (4-12)
[2022-08-21 10:23] LABS: Albumin 3.7 G/DL (3.4-5.0); Bilirubin,Total 0.4 MG/DL (0.20-1.00); Calcium 8.8 MG/DL (8.5-10.1); Osmolality,Calculated 278.3 MOS/KG (273-304); Potassium 3.6 MMOL/L (3.5-5.1); Total Protein 7.2 G/DL (6.4-8.2)
[2022-08-21 10:28] LABS: Bacteria,Urine Occasional /HPF (Few); Hyaline Casts,Urine 12 /LPF (0-3); Mucus,Urine Many /LPF (Occasional); RBC,Urine 1 /HPF (0-4); Squamous Epithelial Cell,Urine Occasional /HPF (0-10)
[2022-08-21 10:29] LABS: Bilirubin,Urine Negative (Negative); Blood, Urine Negative (Negative); Glucose,Urine (UA) Negative (Negative); Ketones,Urine 80 mg/dL (Negative); Nitrite,Urine Negative (Negative); Protein,Urine Negative (Negative); Urine Appearance Clear (Clear); Urine Color Yellow (Yellow); Urine Urobilinogen 0.2 eU/dL (<2.0); Urine pH 6.5 (4.5-8.0)
[2022-08-21 11:23] LABS: Barbiturates Screen,Urine Negative (Negative); Benzodiazepines Screen,Urine Positive (Negative); Cannabinoid Screen,Urine Negative (Negative); Opiate Screen,Urine Negative (Negative); Phencyclidine Screen,Urine Negative (Negative)
[2022-08-21] MEDS ORDERED: METOPROLOL TARTRATE 25 MG TABLET PO PRN (12:23)
[2022-08-21 12:41] LABS: Risk Ratio 4.21; Thyroid Stimulating Hormone 1.02 uIU/ml (0.358-3.74); VLDL Cholesterol 15.6 MG/DL
[2022-08-21] MEDS: SODIUM CHLORIDE 0.9% 1,000 ML IV SCH ×2 (15:45→23:58)
[2022-08-21] MEDS: ONDANSETRON 4 MG/2 ML VIAL IV PRN ×2 (17:16→21:42)
[2022-08-21] MEDS ORDERED: KETOROLAC 30 MG/1 ML VIAL IV ONE (18:11)
[2022-08-21] MEDS: ACETAMINOPHEN 325 MG TABLET PO PRN (21:43)
[2022-08-22] MEDS: ACETAMINOPHEN 325 MG TABLET PO PRN (04:51)
[2022-08-22 04:59] LABS: Basophils # 0.1 10*3/uL (0.0-0.2); Basophils % 0.9 % (0.0-0.8); Eosinophils # 0.1 10*3/uL (0.0-0.87); Eosinophils % 2.1 % (0.00-10.9); Hemoglobin 12.7 GM/DL (12.0-16.0); Lymphocytes # 2.7 10*3/uL (1.4-4.0); Lymphocytes % 46.2 % (21.3-54.2); Mean Corpuscular HGB Conc 33.4 GM/DL (32-36); Mean Corpuscular Volume 83.3 FL (87-102); Mean Platelet Volume 10.4 FL (9.6-12.0); Monocytes # 0.4 10*3/uL (0.11-0.8); Monocytes % 7.4 % (1.7-12.7); Neutrophils % 43.4 % (38.7-73.9); Platelet Count 230 T/CUMM (130-400); Red Blood Count 4.56 MC/CUMM (3.8-5.5); Red Cell Distribution Width 14.2 % (9.3-17.3); White Blood Count 5.9 T/CUMM (4-12)
[2022-08-22] MEDS ORDERED: KETOROLAC 30 MG/1 ML VIAL IV ONE (05:00)
[2022-08-22 05:18] LABS: Calcium 8.6 MG/DL (8.5-10.1); Osmolality,Calculated 281.8 MOS/KG (273-304); Potassium 3.5 MMOL/L (3.5-5.1)
[2022-08-22] MEDS: ONDANSETRON 4 MG/2 ML VIAL IV PRN (05:46)
[2022-08-22] MEDS: SODIUM CHLORIDE 0.9% 1,000 ML IV SCH (08:22)
[2022-08-22] MEDS ORDERED: PANTOPRAZOLE 40 MG TABLET PO SCH (09:00)
[2022-08-22 09:26] VITALS: BP 114/82
== END 2022-08-22 11:18 | disposition home or self-care (01) ==
LOC: N.EDINP 09:02 → N.ED 09:02 → N.2W 17:05
PROVIDERS: ADMIT Internal Medicine; ATTEND Internal Medicine